=== PATIENT | male | born 1945 | race Caucasian/White ===

== ENCOUNTER 2018-03-15 06:45 | Emergency (ER) | payer OTHER ==
[2018-03-15] VITALS (8 sets, daily range): BP systolic 129–163; BP diastolic 76–89; PULSE 58–73; TEMP 36.3–36.6; O2SAT 95–99; Ht 170.2 cm; Wt 79.0 kg
[~2018-03-15] VITALS: Ht 170.2 cm; Wt 79.0 kg
[~2018-03-15 06:45] MED LIST: ASPI-320 PO; CLOP1TAB5 PO; LISI-729 PO; LPR25 PO; LPT40 PO; SPRIN/30 INH
[2018-03-15] MEDS ORDERED: ASPIRIN 81 MG CHEW PO STA (06:58)
[2018-03-15 07:14] LABS: BASO % 0.2 %; BASO ABS # 0.02 K/uL (0-0.2); EOS % 3.2 %; EOS ABS # 0.26 K/uL (0-0.5); HEMATOCRIT 41.8 % (42-52); HEMOGLOBIN 14.3 g/dL (14.0-18.0); IG# 0.03 K/uL (0.00-0.02); LYMPH ABS # 2.97 K/uL (1.2-3.4); MEAN CELL VOLUME 92.7 fL (80-100); MEAN CORPUSCULAR HEMOGLOBIN 31.7 pg (25-34); MEAN CORPUSCULAR HGB CONC 34.2 g/dl (32-36); MEAN PLATELET VOLUME 12.2 fL (7.4-10.4); MONO % 7.1 %; MONO ABS # 0.57 K/uL (0.11-0.59); NEUT % 52.1 %; NEUT ABS # 4.17 K/uL (1.4-6.5); PLATELET COUNT 246 K/uL (130-400); RED CELL DISTRIBUTION WIDTH CV 13.1 % (11.5-14.5); RED CELL DISTRIBUTION WIDTH SD 44.1 fL (36.4-46.3); WHITE BLOOD COUNT 8.02 K/uL (4.8-10.8)
[2018-03-15 07:37] LABS: ALBUMIN 4.4 gm/dl (3.4-5.0); ALKALINE PHOSPHATASE 112 U/L (45-117); ALT/SGPT 31 U/L (12-78); AST/SGOT 25 U/L (15-37); BLOOD UREA NITROGEN 22 mg/dl (7-18); CALCIUM 9.1 mg/dl (8.5-10.1); CARBON DIOXIDE 24 mmol/L (21-32); CREATININE 1.33 mg/dl (0.60-1.40); GLUCOSE 134 mg/dl (70-99); LIPASE 219 U/L (73-393); POTASSIUM 4.1 mmol/L (3.5-5.1); SODIUM 136 mmol/L (136-145); TOTAL PROTEIN 8.4 gm/dl (6.4-8.2)
[2018-03-15 07:42] LABS: INR 0.9 (0.9-1.1); PTT PATIENT 27.5 SECONDS (21.0-31.0)
--- NOTE | 2018-03-15 07:45 | DIAGNOSTIC IMAGING REPORT ---
CHEST 2 VIEWS ROUTINE CLINICAL HISTORY: 72 years-old Male presenting with cp. TECHNIQUE: PA and lateral views of the chest were obtained. COMPARISON: 07/29/2016. FINDINGS: Atherosclerosis of the aortic arch. Cardiac silhouette normal in size. Lungs and pleural spaces clear. Deformity of the left third rib is unchanged, possibly congenital or posttraumatic. Upper abdomen normal. IMPRESSION: 1. No acute cardiopulmonary disease. Electronically signed by: Jonny Michelle M.D. 03/15/2018 7:44 AM Dictated Date/Time: 03/15/2018 7:41 AM
--- NOTE | 2018-03-15 08:14 | EMERGENCY ROOM VISIT NOTE ---
History Report prepared by Jesús: Carmelo Islas Under the Supervision of: Dr. Joseph Bates M.D. First contact with patient: 06:51 Chief Complaint: CHEST PAIN Stated Complaint: TIGHTNESS IN CHEST,WEAKNESS,HARD TIME FINDING PULS History of Present Illness The patient is a 72 year old male who presents to the Emergency Room with complaints of intermittent central chest pain beginning five hours ago. He describes his pain as a feeling of "tightness". The patient's pain began during the night while watching TV and trying to fall asleep. He also reports generalized weakness. He is on Plavix and has a history of cardiac stent placement. The patient denies nausea, vomiting, diarrhea, abdominal pain, cough , SOB, or LOC. He notes that he drove to [place] a week ago, but otherwise denies prolonged travel. He denies any pain radiation. The patient smokes occasionally, and drinks alcohol regularly (every other day, though he claims this is not drinking "regularly"). He denies recent surgeries or trauma. He denies use of supplemental hormones. He is not on any medications for erectile dysfunction. Source of History: patient Onset: Five hours ago Position: chest (central) Quality: other ("tightness") Timing: intermittent Associated Symptoms: + weakness (Generalized), No LOC, No cough, No SOB, No nausea, No vomiting, No abdominal pain, No diarrhea Review of Systems See HPI for pertinent positives and negatives. A total of ten systems were reviewed and were otherwise negative. Past Medical & Surgical Medical Problems: (1) Heart disease (2) Hypertension (3) NSTEMI (non-ST elevated myocardial infarction) Family History Diabetes mellitus FH: heart disease FHx: cancer Hypertension Social History Smoking Status: Current Every Day Smoker Alcohol Use: heavy Drug Use: none Marital Status: Housing Status: lives with family Occupation Status: employed Current/Historical Medications Scheduled Aspirin (Aspirin EC Low Dose), 81 MG PO QAM Atorvastatin (Lipitor), 80 MG PO QAM Budesonide/Formoterol Fumarate (Symbicort 160/4.5 Inhaler ), 2 PUFFS INH BID Cephalexin Monohydrate (Keflex), 1 CAP PO Q6 Clopidogrel Bisulfate (Plavix), 75 MG PO DAILY Furosemide (Lasix), 1 TAB PO DAILY Ipratropium-Albuterol (Combivent Respimat), 1 PUFFS INH QID Levothyroxine Sodium (Synthroid), 0.5 TAB PO DAILY Metoprolol Tartrate (Lopressor), 25 MG PO Q12 Tiotropium Drummond (Spiriva Handihaler), 1 CAP INH DAILY Allergies Coded Allergies: No Known Allergies (Unverified , 03/15/18) Physical Exam Vital Signs Date Time Temp Pulse Resp B/P (MAP) Pulse Ox O2 Delivery O2 Flow Rate FiO2 03/15/18 08:58 59 18 137/96 97 Room Air 03/15/18 08:15 99 Room Air 03/15/18 08:05 57 18 153/99 99 Room Air 03/15/18 07:10 98 Room Air 03/15/18 07:10 98 Room Air 03/15/18 07:04 57 03/15/18 06:51 36.4 03/15/18 06:48 60 16 193/87 98 Room Air Physical Exam Physical Exam GENERAL: He is oriented to person, place, and time. He appears well-developed and well-nourished. He does not appear distressed. HENT: Exam performed. Head: Normocephalic and atraumatic. Right Ear: External ear normal. No mastoid tenderness. Left Ear: External ear normal. No mastoid tenderness. Mouth/Throat: The oropharynx is clear and moist. No trismus in the jaw. No dental abscesses or uvula swelling. No oropharyngeal exudate or tonsillar abscesses. EYES: Conjunctivae and EOM are normal. Pupils are equal, round, and reactive to light. Right eye exhibits no discharge. Left eye exhibits no discharge. No scleral icterus. NECK: Normal range of motion. Neck supple. No JVD present. No spinous process tenderness present. No carotid bruit present. No rigidity. No tracheal deviation and normal range of motion present. No Brudzinski's sign and no Kernig 's sign noted. CV: Normal rate, regular rhythm, normal heart sounds and intact distal pulses. There is no peripheral edema. Palpable radial pulses bue. PULM/CHEST: Effort normal and breath sounds normal. No respiratory distress. No stridor. He has no wheezes. He has no rales. Chest Wall: He exhibits no tenderness. ABD: The abdomen is soft. Bowel sounds are normal. He has no distension. No mass is present. There is no tenderness. There is no rebound, no guarding, no Bennett's sign and no tenderness at McBurney's point. Rovsig negative. MUSC/SKEL: Normal range of motion. There is no peripheral edema, tenderness or deformity. LYMPH: No cervical adenopathy. NEURO: He is alert and oriented to person, place, and time. He has normal strength. No cranial nerve deficit or sensory deficit. Coordination and gait normal. GCS eye subscore is 4. GCS verbal subscore is 5. GCS motor subscore is 6. Cerebellar tests wnl. SKIN: Skin is warm and dry. He is not diaphoretic. PSYCH: He has a normal mood and affect. Behavior is normal. Judgment and thought content normal. Medical Decision & Procedures ER Provider Diagnostic Interpretation: Radiology results as stated below per my review and radiologist interpretation: CHEST 2 VIEWS ROUTINE FINDINGS: Atherosclerosis of the aortic arch. Cardiac silhouette normal in size. Lungs and pleural spaces clear. Deformity of the left third rib is unchanged, possibly congenital or posttraumatic. Upper abdomen normal. IMPRESSION: 1. No acute cardiopulmonary disease. Electronically signed by: Jonny Michelle M.D. 03/15/2018 7:44 AM Laboratory Results 03/15/18 07:00 Red Blood Count 4.51, Mean Corpuscular Volume 92.7, Mean Corpuscular Hemoglobin 31.7, Mean Corpuscular Hemoglobin Concent 34.2, Mean Platelet Volume 12.2, Neutrophils (%) (Auto) 52.1, Lymphocytes (%) (Auto) 37.0, Monocytes (%) (Auto) 7.1, Eosinophils (%) (Auto) 3.2, Basophils (%) (Auto) 0.2, Neutrophils # (Auto) 4.17, Lymphocytes # (Auto) 2.97, Monocytes # (Auto) 0.57, Eosinophils # (Auto) 0.26, Basophils # (Auto) 0.02 03/15/18 07:00 Test 03/15/18 07:00 White Blood Count 8.02 K/uL (4.8-10.8) Red Blood Count 4.51 M/uL (4.7-6.1) Hemoglobin 14.3 g/dL (14.0-18.0) Hematocrit 41.8 % (42-52) Mean Corpuscular Volume 92.7 fL (80-100) Mean Corpuscular Hemoglobin 31.7 pg (25-34) Mean Corpuscular Hemoglobin Concent 34.2 g/dl (32-36) Platelet Count 246 K/uL (130-400) Mean Platelet Volume 12.2 fL (7.4-10.4) Neutrophils (%) (Auto) 52.1 % Lymphocytes (%) (Auto) 37.0 % Monocytes (%) (Auto) 7.1 % Eosinophils (%) (Auto) 3.2 % Basophils (%) (Auto) 0.2 % Neutrophils # (Auto) 4.17 K/uL (1.4-6.5) Lymphocytes # (Auto) 2.97 K/uL (1.2-3.4) Monocytes # (Auto) 0.57 K/uL (0.11-0.59) Eosinophils # (Auto) 0.26 K/uL (0-0.5) Basophils # (Auto) 0.02 K/uL (0-0.2) RDW Standard Deviation 44.1 fL (36.4-46.3) RDW Coefficient of Variation 13.1 % (11.5-14.5) Immature Granulocyte % (Auto) 0.4 % Immature Granulocyte # (Auto) 0.03 K/uL (0.00-0.02) Prothrombin Time 9.6 SECONDS (9.0-12.0) Prothromb Time International Ratio 0.9 (0.9-1.1) Activated Partial Thromboplast Time 27.5 SECONDS (21.0-31.0) Partial Thromboplastin Ratio 1.1 D-Dimer 370 ug/L FEU (0-500) Anion Gap 9.0 mmol/L (3-11) Est Creatinine Clear Calc Drug Dose 52.5 ml/min Estimated GFR () 62.3 Estimated GFR (Non- 53.8 BUN/Creatinine Ratio 16.6 (10-20) Estimated Average Glucose 137 mg/dl Hemoglobin A1c 6.4 % (4.5-5.6) Calcium Level 9.1 mg/dl (8.5-10.1) Total Bilirubin 0.5 mg/dl (0.2-1) Direct Bilirubin 0.1 mg/dl (0-0.2) Aspartate Amino Transf (AST/SGOT) 25 U/L (15-37) Alanine Aminotransferase (ALT/SGPT) 31 U/L (12-78) Alkaline Phosphatase 112 U/L (45-117) Troponin I < 0.015 ng/ml (0-0.045) Pro-B-Type Natriuretic Peptide 116 pg/ml (0-900) Total Protein 8.4 gm/dl (6.4-8.2) Albumin 4.4 gm/dl (3.4-5.0) Lipase 219 U/L (73-393) Laboratory results reviewed by me Medications Administered Medications (Trade) Dose Ordered Sig/Danyelle Route Start Time Stop Time Status Last Admin Dose Admin Aspirin (Aspirin Chew) 324 mg NOW STAT PO 03/15/18 06:58 03/15/18 07:00 DC 03/15/18 07:04 324 MG Nitroglycerin (Nitrostat Tab) 0.4 mg Q5M PRN SL 03/15/18 08:30 03/15/18 11:08 DC 03/15/18 08:33 0.4 MG Sodium Chloride 1,000 ml @ 125 mls/hr Q8H STAT IV 03/15/18 08:21 03/15/18 16:20 03/15/18 08:21 125 MLS/HR ECG Per My Interpretation Indication: chest pain Rate (beats per minute): 61 Rhythm: sinus rhythm Findings: other (DC, QRS and QTC intervals within normal limits. No ST elevations or depressions. ) ED Course 0652: The patient was evaluated in room A10. A complete history and physical exam was performed. 0658: Ordered Aspirin Chew 324 mg PO. 0700: EMR reviewed. Patient had STEMI in 2015 with cath done and stent placement in left circumflex. Patient also has a history of non-compliance, alcohol abuse, and it is documented that he is unreliable for follow-up. 0802: Vital signs stable. Labs and imaging within normal limits. Given the patients history of cardiac stent, non-compliance, and no true cardiology follow -up since stent placement, the patient will be admitted to the hospitalist service for rule out ACS. I spoke with Dr. Early of the [facility] who agrees with this plan. Medical Decision 0700: EMR reviewed. Patient had STEMI in 2015 with cath done and stent placement in left circumflex. Patient also has a history of non-compliance, alcohol abuse, and it is documented that he is unreliable for follow-up. 0802: Vital signs stable. Labs and imaging within normal limits. Given the patients history of cardiac stent, non-compliance, and no true cardiology follow -up since stent placement, the patient will be admitted to the hospitalist service for rule out ACS. I spoke with Dr. Early of the [facility] who agrees with this plan. Medication Reconcilliation Current Medication List: was personally reviewed by me Blood Pressure Screening Patient's blood pressure: Elevated blood pressure Blood pressure disposition: Referred to PCP Consults Time Called: [phone] Consulting Physician: Dr. Early - [facility] Returned Call: [phone] Discussed the patient's case. The patient will be evaluated for further treatment and disposition. Impression Primary Impression: Chest pain, unspecified Scribe Attestation The scribe's documentation has been prepared under my direction and personally reviewed by me in its entirety. I confirm that the note above accurately reflects all work, treatment, procedures, and medical decision making performed by me. The chart was completed utilizing [employer] Speech voice recognition software. Grammatical errors, random word insertions, pronoun errors, and incomplete sentences are an occasional consequence of this system due to software limitations, ambient noise, and hardware issues. Any formal questions or concerns about the content, text, or information contained within the body of this dictation should be directly addressed to the physician for clarification. Departure Information Dispostion Being Evaluated By Hospitalist Referrals Antonia Mcginnis M.D. (PCP) Patient Instructions My [facility] Problem Qualifiers Primary Impression: Chest pain, unspecified Chest pain type: unspecified Qualified Codes: R07.9 - Chest pain, unspecified
[2018-03-15] MEDS ORDERED: SODIUM CHLORIDE 0.9% 1000ML 1,000 ML IV STA (08:21)
[2018-03-15] MEDS ORDERED: NITROGLYCERIN 0.4 MG SL PER TAB CHARGE SL PRN ×2 (08:30→09:00)
[2018-03-15] MEDS ORDERED: POLYETHYLENE (MIRALAX) 17 GM PACK PO PRN (09:00)
[2018-03-15] MEDS ORDERED: ONDANSETRON INJ 2 MG/ML 2 ML VIAL IV PRN (09:00)
[2018-03-15] MEDS: ASPIRIN 81 MG ECTAB PO SCH (09:00)
--- NOTE | 2018-03-15 09:47 | History and Physical ---
History & Physical Date & Time of Service: Mar 15, 2018 at 09:16 Chief Complaint: Tightness In Chest,Weakness,Hard Time Finding Puls Primary Care Physician: No Doctor, Assigned History of Present Illness Source: patient Attending: Dr. Early This is a 72-year-old male that presents with chest pain which originated last night at about 2:30 AM. The patient states that he had a major heart attack in 1998. He also states that he had second heart attack in 2016 requiring a bare metal stent to the mid left circumflex which was placed by Dr. Perry. The patient remains on aspirin and Plavix daily as well as Lipitor daily. He also takes Lopressor 25 mg p.o. twice daily. The patient has not been diagnosed with GERD but symptoms seem to be reflux related. Pain at 2:30 AM was more like a burning sensation that was in the middle lower chest and upper abdomen. Patient does complain of some bloating which is new for him. He reports having a hot sausage sandwich somewhere between 7 PM and 9 PM as well as a midnight snack. The patient sleeps in a recliner and is able to recline fully and attempts to sleep on his right side. Pain is worse when he is in a right lateral recumbent position. He denies any hematemesis or hemoptysis. He denies any fever or chills or recent illness. However, he states that last night he did "take a chill or 2". He did travel to [place] several weeks ago, spent the night, and drove home the next day. He does not remember any asymmetrical edema of lower extremities but states that he does get lower extremity edema. The patient follows with the [facility] in [place]. He denies any other recent illness. He has no other chief complaints. It should be noted that the patient smokes cigarettes when playing guitar and drinking. He states that he drinks about every other day and that he smokes cigarettes every other day. He remains active cutting the grass and has no exertional shortness of breath or chest pain. Past Medical/Surgical History Medical Problems: CAD Hypertension NSTEMI (non-ST elevated myocardial infarction) with bare metal stent placement in 2016 to the mid left circumflex Prediabetes Shortness of breath with no diagnosis of COPD or asthma (uses Spiriva daily) Tobacco abuse Ethanol use Abnormal echocardiogram in 2016 Past surgical history: Left inguinal hernia repair Cardiac catheterization with bare-metal stent placement to the mid left circumflex [address] Perry Left rotator cuff surgery 2 years ago Family History Diabetes mellitus FH: heart disease FHx: cancer Hypertension Social History Smoking Status: Current Every Day Smoker (Per the sister although patient states is every other day) Smokeless Tobacco Use: No Alcohol Use: Patient admits to every other day use of ethanol with several beers Drug Use: none Marital Status: Housing status: lives with family (Lives with who is disabled) Occupational Status: retired (Retired from [employer] last year) Immunizations History of Influenza Vaccine: Unknown History of Tetanus Vaccine?: Unknown History of Pneumococcal: Unknown History of Hepatitis B Vaccine: Unknown Allergies Coded Allergies: No Known Allergies (Unverified , 03/15/18) Home Medications Scheduled Aspirin (Aspirin EC Low Dose), 81 MG PO QAM Atorvastatin (Lipitor), 80 MG PO QAM Budesonide/Formoterol Fumarate (Symbicort 160/4.5 Inhaler ), 2 PUFFS INH BID Cephalexin Monohydrate (Keflex), 1 CAP PO Q6 Clopidogrel Bisulfate (Plavix), 75 MG PO DAILY Furosemide (Lasix), 1 TAB PO DAILY Ipratropium-Albuterol (Combivent Respimat), 1 PUFFS INH QID Levothyroxine Sodium (Synthroid), 0.5 TAB PO DAILY Metoprolol Tartrate (Lopressor), 25 MG PO Q12 Tiotropium [place] (Spiriva Handihaler), 1 CAP INH DAILY Review of Systems Constitutional: + chills, No fever, No sweats, No weight loss, No fatigue ENT: No unusual epistaxis, No trouble swallowing Respiratory: + sputum (Occasional yellow sputum), No cough, No wheezing, No shortness of breath, No dyspnea on exertion, No hemoptysis Cardiovascular: + chest pain, + edema (Occasional but not today), No orthopnea , No claudication, No palpitations Abdomen: + problem reported (Feels bloated and often times has "heartburn"), No pain, No nausea, No vomiting, No diarrhea, No constipation, No GI bleeding Musculoskeletal: + calf pain (Occasional cramping in bilateral gastrocnemius muscles), No joint pain, No muscle pain, No swelling Genitourinary - Male: No hematuria, No dysuria, No urinary hesitancy, No urinary retention, No urinary incontinence, No penile discharge Neurologic: No memory loss, No paralysis, No weakness, No numbness/tingling, No vertigo Endocrine: No fatigue, No excessive thirst, No excessive urination Integumentary: No rash, No itch Allergic / Immunologic: No environmental allergies, No seasonal allergies, No pet sensitivities Physical Exam Vital Signs Date Time Temp Pulse Resp B/P (MAP) Pulse Ox O2 Delivery O2 Flow Rate FiO2 03/15/18 08:58 59 18 137/96 97 Room Air 03/15/18 08:15 99 Room Air 03/15/18 08:05 57 18 153/99 99 Room Air 03/15/18 07:10 98 Room Air 03/15/18 07:10 98 Room Air 03/15/18 07:04 57 03/15/18 06:51 36.4 03/15/18 06:48 60 16 193/87 98 Room Air GENERAL : No acute distress. Pleasant. Can speak in full sentences without shortness of breath EYES: No icterus, gaze conjugate. PERRLA NOSE: No evidence of epistaxis. MOUTH: No lesions or candidiasis. Mucosa moist. No facial droop. Tongue is midline NECK: Supple LUNGS: Breath sounds equal bilaterally. Rales in the left base. No bronchospasm HEART: Regular, rate controlled with a rate in the 60s ABDOMEN: Soft, NT, BS Present. Minimal mid epigastric pain with deep palpation. Abdomen is distended. No guarding or rebound tenderness EXTREMITIES: No LE edema, pedal pulses intact. Evidence of early chronic venous stasis in bilateral lower extremities NEURO: A&OX3. Cranial nerves II through XII with no focal deficit Diagnostics Laboratory Results Results Past 24 Hours Test 03/15/18 07:00 Range/Units White Blood Count 8.02 4.8-10.8 K/uL Red Blood Count 4.51 4.7-6.1 M/uL Hemoglobin 14.3 14.0-18.0 g/dL Hematocrit 41.8 42-52 % Mean Corpuscular Volume 92.7 80-100 fL Mean Corpuscular Hemoglobin 31.7 25-34 pg Mean Corpuscular Hemoglobin Concent 34.2 32-36 g/dl Platelet Count 246 130-400 K/uL Mean Platelet Volume 12.2 7.4-10.4 fL Neutrophils (%) (Auto) 52.1 % Lymphocytes (%) (Auto) 37.0 % Monocytes (%) (Auto) 7.1 % Eosinophils (%) (Auto) 3.2 % Basophils (%) (Auto) 0.2 % Neutrophils # (Auto) 4.17 1.4-6.5 K/uL Lymphocytes # (Auto) 2.97 1.2-3.4 K/uL Monocytes # (Auto) 0.57 0.11-0.59 K/uL Eosinophils # (Auto) 0.26 0-0.5 K/uL Basophils # (Auto) 0.02 0-0.2 K/uL RDW Standard Deviation 44.1 36.4-46.3 fL RDW Coefficient of Variation 13.1 11.5-14.5 % Immature Granulocyte % (Auto) 0.4 % Immature Granulocyte # (Auto) 0.03 0.00-0.02 K/uL Prothrombin Time 9.6 9.0-12.0 SECONDS Prothromb Time International Ratio 0.9 0.9-1.1 Activated Partial Thromboplast Time 27.5 21.0-31.0 SECONDS Partial Thromboplastin Ratio 1.1 D-Dimer 370 0-500 ug/L FEU Sodium Level 136 136-145 mmol/L Potassium Level 4.1 3.5-5.1 mmol/L Chloride Level 103 98-107 mmol/L Carbon Dioxide Level 24 21-32 mmol/L Anion Gap 9.0 3-11 mmol/L Blood Urea Nitrogen 22 7-18 mg/dl Creatinine 1.33 0.60-1.40 mg/dl Est Creatinine Clear Calc Drug Dose 52.5 ml/min Estimated GFR () 62.3 Estimated GFR (Non- 53.8 BUN/Creatinine Ratio 16.6 10-20 Random Glucose 134 70-99 mg/dl Calcium Level 9.1 8.5-10.1 mg/dl Total Bilirubin 0.5 0.2-1 mg/dl Direct Bilirubin 0.1 0-0.2 mg/dl Aspartate Amino Transf (AST/SGOT) 25 15-37 U/L Alanine Aminotransferase (ALT/SGPT) 31 12-78 U/L Alkaline Phosphatase 112 45-117 U/L Troponin I < 0.015 0-0.045 ng/ml Pro-B-Type Natriuretic Peptide 116 0-900 pg/ml Total Protein 8.4 6.4-8.2 gm/dl Albumin 4.4 3.4-5.0 gm/dl Lipase 219 73-393 U/L Diagnostic Radiology CHEST 2 VIEWS ROUTINE CLINICAL HISTORY: 72 years-old Male presenting with cp. TECHNIQUE: PA and lateral views of the chest were obtained. COMPARISON: 07/29/2016. FINDINGS: Atherosclerosis of the aortic arch. Cardiac silhouette normal in size. Lungs and pleural spaces clear. Deformity of the left third rib is unchanged, possibly congenital or posttraumatic. Upper abdomen normal. IMPRESSION: 1. No acute cardiopulmonary disease. Electronically signed by: Jonny Michelle M.D. 03/15/2018 7:44 AM EKG Vent. rate 61 BPM OR interval 196 ms QRS duration 88 ms QT/QTc 440/442 ms P-R-T axes 67 9 55 Normal sinus rhythm Possible Left atrial enlargement Borderline ECG When compared with ECG of 30-JUL-2016 06:22, No significant change was found Impression Assessment and Plan This is a 72-year-old male that awoke at 230 this morning with some chest pain in the precordial region extending into the mid epigastric abdominal cavity. The patient states that he ate a hot sausage sandwich last night between 7 and 9 PM and then had a midnight snack. Cardiac enzymes were negative this morning with a troponin of less than 0.015 and no EKG changes. Patient did have previous PCI with bare-metal stent to mid left circumflex [place] [address] Perry and remains on Plavix aspirin Lipitor and Lopressor since that time. Cardiology has been consulted to evaluate patient. I spoke personally with Dr. Williamson. Patient had recent travel to [place] so we will check lower extremity duplex to rule out DVT. We will also check repeat echocardiogram as patient had wall motion abnormalities after his stent in 2016. Patient will be admitted under observation status to the medical telemetry unit for further monitoring and serial cardiac enzymes. CHEST PAIN * Negative troponin and no ST changes on EKG * Check serial troponins every 6 hours * Check repeat EKG tomorrow morning and with chest pain * Cardiology consulted -appreciate Dr. Williamson's input * Check complete echocardiogram * Continue Lopressor, Plavix, Lipitor, aspirin daily * Recent travel to [place] and back * Check lower extremity duplex to rule out DVT * Does not meet criteria to rule out for pulmonary emboli * Admit for observation to med telemetry floor PROBABLE GERD * No prior history of ulcers or PUD * Will start him on ranitidine 150 mg p.o. twice daily * Discussed need for not eating within 4 hours of sleep * No hematemesis, hematochezia, melena, bright red blood per rectum * Hemoglobin and hematocrit within normal limits * Follow supportively SHORTNESS OF BREATH * Recent overnight travel to [place] and back * Check lower extremity duplex to rule out DVT * Does not follow with a wine fermenter currently but is on Spiriva daily * Discussed need for abstinence of tobacco abuse * Smoking cessation consult placed * Continue Spiriva at this time -[facility] * Oxygenation adequate on room air ETHANOL ABUSE * Every day to every other day drinker with Sheeba beer * Denies history of dependence or withdrawal * Discussed need to limit intake DVT PROPHYLAXIS * Heparin subcu every 12 hours * No teds or SCDs at this time pending lower extremity duplex to rule out DVT Please refer to Dr. Early's addendum for further recommendations Advanced Directives Existing Living Will: No Existing Power of Split Leather Mosser: No Resuscitation Status Level I: Full code VTE Prophylaxis Will order VTE Prophylaxis: Yes Reason no Mechanical VTE Order: Contraindicated (Until DVT is ruled out) Reviewed: Pt Seen/Exam by Me History Physician Event Coordinator Marketing And Sales Supervision Note: I interviewed and examined the patient. Discussed with JHON Roque and agree with findings and plan as documented in the note. Any exceptions or clarifications are listed here: Pt with substernal CP that came on during sleep after eating a midnight snack containing hot sausage. Some associated abd bloating and dyspepsia, no SOB, nonradiating. Lasted for at least 5-6 hours, somewhat relieved initially with NTG, then went away after admission here. ECG without ischemic changes, trop negative initially. CXR no acute disease Vitals reviewed NAD, AAOx3 RRR no mgr, no carotid bruits, no JVD, no TTP over chest wall Crackles at bases, diminished throughout Abd +BS soft NT ND Ext trace pitting edema bilat legs, no calf tenderness, neg Abdoulaye's sign Skin a few scabbed over abrasions on anterior tibiae bilat ECG reviewed CXR reviewed Doppler LEs neg for DVT ECHO without WMAs 72 yo male with h/o CAD s/o BMS in 2016, here with atypical CP. trend trop, if second trop negative after 6 hours of chest pain, not likely cardiac in nature -Appreciate Cardio consult-if no further testing indicated, can dc to home later today on same meds -counseled on smoking cessation Documented By: Merline Early
[2018-03-15] MEDS ORDERED: ALBUT/IPRATROP 3MG/0.5MG NEB 3 ML VIAL INH PRN (10:15)
[2018-03-15 10:29] LABS: HEMOGLOBIN A1C 6.4 % (4.5-5.6)
--- NOTE | 2018-03-15 10:41 | DIAGNOSTIC IMAGING REPORT ---
VENOUS DOPPLER LWR EXT BILA HISTORY: Pain. Edema. Chets pain, R/O LE DVT COMPARISON STUDY: None. FINDINGS: There is normal compressibility, flow, and augmentation within the bilateral lower extremity deep venous systems. IMPRESSION: No DVT within the right or left lower extremity. The above report was generated using voice recognition software. It may contain grammatical, syntax or spelling errors. Electronically signed by: Maurizio Nelson M.D. 03/15/2018 10:40 AM Dictated Date/Time: 03/15/2018 10:36 AM
[2018-03-15] MEDS ORDERED: IV FLUIDS COMPLETED PRN (11:00)
[2018-03-15] MEDS: ALBUT/IPRATROP 3MG/0.5MG NEB 3 ML VIAL INH SCH ×3 (11:28→19:26)
[2018-03-15] MEDS: ATORVASTATIN 40 MG TAB PO SCH (11:30)
[2018-03-15] MEDS: METOPROLOL TARTRATE 25 MG TAB PO SCH ×2 (11:30→20:10)
[2018-03-15] MEDS ORDERED: IPRA1AER2 INH (11:49)
[2018-03-15] MEDS ORDERED: FURO-85 PO (11:49)
[2018-03-15] MEDS ORDERED: CEPH500C PO (11:49)
[2018-03-15] MEDS ORDERED: LEVO25TA PO (11:49)
[2018-03-15] MEDS ORDERED: SYMIN160 INH (11:49)
[2018-03-15] MEDS: TIOTROPIUM BROMIDE 5 PUFF/90 MCG INH INH SCH (12:18)
[2018-03-15] MEDS: CLOPIDOGREL BISULFATE 75 MG TAB PO SCH (12:20)
[2018-03-15] MEDS: HEPARIN SOD 5000 UNIT/0.5 ML CARP SQ SCH ×2 (12:20→20:12)
[2018-03-15] MEDS: RANITIDINE HCL 150 MG TAB PO SCH ×2 (12:21→20:11)
--- NOTE | 2018-03-15 12:46 | ECHOCARDIOGRAM REPORT ---
*NOTICE TO RECEIVING REPUBLICAN AGENCY This information is strictly Confidential and protected under [place] law. [place] law prohibits you from making any further disclosure of this information unless further disclosure is expressly permitted by the written consent of the person to whom it pertains or is authorized by law. A general authorization for the release of medical or other information is not sufficient for this purpose. Hospital accepts no responsibility if the information is made available to any other person, INCLUDING THE PATIENT. Interpretation Summary * Name: TERRI BARNHART Study Date: 03/15/2018 09:29 AM BP: 137/96 mmHg * Patient Location: [facility] HR: 55 * : 1945 (M/d/yyyy) Gender: Male Height: 67 in * Age: 72 yrs Ethnicity: CA Weight: 177 lb * Ordering Physician: Luiz Roque * Referring Physician: Self, Referred * Performed By: Marilin Johnson RCS * * Reason For Study: CHEST PAIN * BSA: 1.9 m2 * -- Conclusions -- * Left ventricular systolic function is normal. * Grade I diastolic dysfunction, (abnormal relaxation pattern). * The left ventricular wall motion is normal. * Right ventricular systolic pressure is normal. Procedure Details * A complete two-dimensional transthoracic echocardiogram was performed (2D, M-mode, Doppler and color flow Doppler). * The study was technically difficult. * A contrast injection of Definity was performed to improve assessment of LV function. * Contrast was injected into an intravenous site in the right arm. * One vial of Definity ultrasound contrast was diluted in normal saline to a total volume of 10 ml. A total of '2' ml of solution was administered during imaging. * Lot # [id number] of Definity utilized for procedure. * Expiration date JANUARY 23. * The attending nurse who injected the contrast agent was CURTIS GARCIA RN. Left Ventricle * The left ventricle is normal in size. * There is normal left ventricular wall thickness. * Left ventricular systolic function is normal. * Ejection Fraction = 55-60%. * Grade I diastolic dysfunction, (abnormal relaxation pattern). * The left ventricular wall motion is normal. Right Ventricle * The right ventricle is normal in size and function. Atria * The left atrial size is normal. * Right atrial size is normal. Mitral Valve * The mitral valve is grossly normal. * Significant mitral regurgitation is absent. Tricuspid Valve * The tricuspid valve is not well visualized, but is grossly normal. * There is mild tricuspid regurgitation. * Right ventricular systolic pressure is normal. Aortic Valve * The aortic valve is normal in structure and function. * The aortic valve is trileaflet. * No hemodynamically significant valvular aortic stenosis. * There is no significant aortic regurgitation. Pulmonic Valve * The pulmonic valve is not well visualized. Great Vessels * The aortic root is normal size. Pericardium/Pleural * There is no pericardial effusion. Great Vessels * Normal inferior vena cava diameter and respiratory variation suggests normal central venous pressure. MMode 2D Measurements and Calculations IVSd 1.1 cm IVSs 1.2 cm LVIDd 3.8 cm LVIDs 2.4 cm LVPWd 0.92 cm LVPWs 1.2 cm IVS/LVPW 1.1 FS 36.2 % EDV(Teich) 63.4 ml ESV(Teich) 21.2 ml EF(Teich) 66.6 % EDV(cubed) 56.5 ml ESV(cubed) 14.7 ml EF(cubed) 74.0 % % IVS thick 16.4 % % LVPW thick 27.2 % LV mass(C)d 116.9 grams LV mass(C)dI 60.9 grams/m\S\2 LV mass(C)s 83.1 grams LV mass(C)sI 43.3 grams/m\S\2 SV(Teich) 42.2 ml SI(Teich) 22.0 ml/m\S\2 SV(cubed) 41.8 ml SI(cubed) 21.8 ml/m\S\2 Ao root diam 2.3 cm Ao root area 4.2 cm\S\2 LA dimension 3.3 cm LA/Ao 1.4 LVOT diam 2.0 cm LVOT area 3.2 cm\S\2 LVAd ap4 31.3 cm\S\2 LVLd ap4 8.5 cm EDV(MOD-sp4) 96.2 ml EDV(sp4-el) 98.3 ml LVAs ap4 22.2 cm\S\2 LVLs ap4 7.3 cm ESV(MOD-sp4) 56.6 ml ESV(sp4-el) 57.6 ml EF(MOD-sp4) 41.2 % EF(sp4-el) 41.4 % LVAd ap2 28.3 cm\S\2 LVLd ap2 8.7 cm EDV(MOD-sp2) 73.8 ml EDV(sp2-el) 77.7 ml LVAs ap2 19.6 cm\S\2 LVLs ap2 7.9 cm ESV(MOD-sp2) 40.4 ml ESV(sp2-el) 41.3 ml EF(MOD-sp2) 45.3 % EF(sp2-el) 46.9 % LVLd %diff 2.9 % EDV(MOD-bp) 85.2 ml LVLs %diff 8.2 % ESV(MOD-bp) 49.6 ml EF(MOD-bp) 41.8 % SV(MOD-sp4) 39.6 ml SI(MOD-sp4) 20.6 ml/m\S\2 SV(MOD-sp2) 33.4 ml SI(MOD-sp2) 17.4 ml/m\S\2 SV(MOD-bp) 35.6 ml SI(MOD-bp) 18.5 ml/m\S\2 SV(sp4-el) 40.7 ml SI(sp4-el) 21.2 ml/m\S\2 SV(sp2-el) 36.4 ml SI(sp2-el) 19.0 ml/m\S\2 Doppler Measurements and Calculations MV E max winnie 64.1 cm/sec MV A max winnie 79.1 cm/sec MV E/A 0.81 MV P1/2t max winnie 72.5 cm/sec MV P1/2t 83.3 msec MVA(P1/2t) 2.6 cm\S\2 MV dec slope 254.7 cm/sec\S\2 MV dec time 0.31 sec Ao V2 max 69.9 cm/sec Ao max PG 2.0 mmHg Ao max PG (full) 0.47 mmHg SUSANNAH(V,A) 2.8 cm\S\2 SUSANNAH(V,D) 2.8 cm\S\2 LV V1 max PG 1.5 mmHg LV V1 max 60.9 cm/sec MR max winnie 341.6 cm/sec MR max PG 46.7 mmHg TR max winnie 203.2 cm/sec
--- NOTE | 2018-03-15 17:24 | Cardiology Consultation ---
Cardiology Consultation Date of Consultation: Mar 15, 2018. Requesting Physician: Luiz Roque Reason for Consultation: Chest pain Pt evaluation today including: conversation w/ patient, physical exam, lab review, review of studies, review of inpatient medication list, conversation w/ attending History of Present Illness This is a 72-year-old gentleman who follows with the PA, although we have seen him for an intervention a year and a half ago. His cardiac history dates back to 1998 when he presented here with an acute anterior myocardial infarction, had thrombolytic therapy and was transferred to [facility]. At that time he had anterior hypokinesis and ejection fraction estimated at 35%, catheterization was performed and we do not have results but according to the patient's chart there is a failed attempt at stenting. I do not believe he had routine follow- up from that, but then he had recurrent chest discomfort and presented here in July 2016. He had borderline troponin elevation and had rest chest discomfort at that time therefore he underwent cardiac catheterization on July 29, 2016. He had a subtotaled left circumflex stenosis, as well as other disease including a 2030% mid RCA stenosis, and therefore had stent placement in the circumflex. His ejection fraction is estimated at 45% at catheterization. We did not see him in follow-up after this procedure, he tells me he has been following with the PA although he tends to be noncompliant. He now presents with recurrent discomfort, his history is a little bit hard to follow but he describes epigastric and substernal discomfort which he tells me is identical to his prior myocardial infarction. He also describes an exertional component to it. He also has "heartburn" which is in the epigastric area, however he tells me that this discomfort is higher and is quite different from his heartburn and he thinks it is not heartburn. Initial evaluation included an echocardiogram with no wall motion abnormalities and negative cardiac enzymes. Electrocardiogram does not show any acute ischemic event. Past Medical/Surgical History (1) Hypertension Hypertension Circumflex stent placement July 2016 Family History Diabetes mellitus FH: heart disease FHx: cancer Hypertension Social History Smoking Status: Current Every Day Smoker (Per the sister although patient states is every other day) History of Alcohol Use: Yes (beer 6pack/week, heavy ETOH intake) Review of Systems Constitutional: No fever, No weight loss, No weakness Respiratory: No cough, No wheezing, No shortness of breath, No dyspnea on exertion Cardiac: + see HPI, + chest pain, No orthopnea, No PND, No edema, No palpitations Abdomen: No pain, No nausea, No vomiting, No diarrhea, No GI bleeding Male : No urinary frequency, No nocturia more than once/night, No slowing stream, No sexual dysfunction Neurologic: No paralysis, No weakness, No numbness/tingling, No balance problems Heme: No abnormal bleeding/bruising, No clotting problems Endo: No fatigue Skin: No problem reported All Other Systems: Reviewed and Negative Allergies Coded Allergies: No Known Allergies (Unverified , 03/15/18) Medications Current Inpatient Medications Medications (Trade) Dose Ordered Sig/Danyelle Route Start Time Stop Time Status Last Admin Dose Admin Aspirin (Ecotrin Tab) 81 mg QAM PO 03/15/18 09:00 04/14/18 08:59 Atorvastatin Calcium (Lipitor Tab) 80 mg QAM PO 03/15/18 11:30 04/14/18 11:29 Clopidogrel Bisulfate (plAVix TAB) 75 mg DAILY PO 03/15/18 11:30 04/14/18 11:29 Metoprolol Tartrate (Lopressor Tab) 25 mg Q12 PO 03/15/18 11:30 04/14/18 11:29 Future Hold Tiotropium [place] (Spiriva Handihaler Inhaler) 1 puff DAILY INH 03/15/18 11:30 04/14/18 11:29 Heparin Sodium (Porcine) (Heparin Sq 5000 Unit/0.5ml) 5,000 unit Q12 SQ 03/15/18 11:30 04/14/18 11:29 Acetaminophen (Tylenol Tab) 650 mg Q4H PRN PO 03/15/18 09:00 04/14/18 08:59 Ondansetron HCl (Zofran Inj) 4 mg Q6H PRN IV 03/15/18 09:00 04/14/18 08:59 Nitroglycerin (Nitrostat Tab) 0.4 mg UD PRN SL 03/15/18 09:00 04/14/18 08:59 Polyethylene (Miralax Powder Packet) 17 gm DAILY PRN PO 03/15/18 09:00 04/14/18 08:59 Albuterol/ Ipratropium (Duoneb) 3 ml QIDR INH 03/15/18 12:00 04/14/18 11:59 03/15/18 14:36 3 ML Ranitidine HCl (zANTac TAB) 150 mg BID PO 03/15/18 11:30 04/14/18 11:29 03/15/18 12:21 150 MG Albuterol/ Ipratropium (Duoneb) 3 ml Q2H PRN INH 03/15/18 10:15 04/14/18 10:14 Miscellaneous (Iv Fluids Completed) 1 ea PRN PRN N/A 03/15/18 11:00 03/15/19 10:59 Physical Exam Vital Signs Past 12 Hours Date Time Temp Pulse Resp B/P (MAP) Pulse Ox O2 Delivery O2 Flow Rate FiO2 03/15/18 15:52 36.3 69 20 142/80 (100) 98 Room Air 03/15/18 14:36 68 18 97 Room Air 03/15/18 11:28 60 18 98 Room Air 03/15/18 11:09 58 18 163/89 (113) 98 03/15/18 09:55 55 03/15/18 08:58 59 18 137/96 97 Room Air 03/15/18 08:15 99 Room Air 03/15/18 08:05 57 18 153/99 99 Room Air 03/15/18 07:10 98 Room Air 03/15/18 07:10 98 Room Air 03/15/18 07:04 57 03/15/18 06:51 36.4 03/15/18 06:48 60 16 193/87 98 Room Air Constitutional: General Apperance: heathly-appearing Level of Distress: NAD Psychiatric: Mental Status: active & alert Head: normocephalic Eyes: EOM: EOMI ENMT: normal ENT inspection, hearing grossly normal Neck: supple, no masses Lungs: Respiratory effort: no dyspnea, good air movement Auscultation: breath sounds normal, no wheezing Cardiovascular: Heart Auscultation: RRR, no murmurs, no rubs, no gallops Peripheral Pulses: Bruits: none appreciated Abdomen: Bowel Sounds: normal Inspection & Palpation: soft, no tenderness, guarding & rebound, no masses Musculoskeletal: normal strength (5/5 throughout) Extremities: no edema Neurologic: Cranial Nerves: grossly intact Sensation: grossly intact Data Laboratory Results: Last 24 Hours Test 03/15/18 07:00 03/15/18 14:52 White Blood Count 8.02 K/uL Red Blood Count 4.51 M/uL Hemoglobin 14.3 g/dL Hematocrit 41.8 % Mean Corpuscular Volume 92.7 fL Mean Corpuscular Hemoglobin 31.7 pg Mean Corpuscular Hemoglobin Concent 34.2 g/dl Platelet Count 246 K/uL Mean Platelet Volume 12.2 fL Neutrophils (%) (Auto) 52.1 % Lymphocytes (%) (Auto) 37.0 % Monocytes (%) (Auto) 7.1 % Eosinophils (%) (Auto) 3.2 % Basophils (%) (Auto) 0.2 % Neutrophils # (Auto) 4.17 K/uL Lymphocytes # (Auto) 2.97 K/uL Monocytes # (Auto) 0.57 K/uL Eosinophils # (Auto) 0.26 K/uL Basophils # (Auto) 0.02 K/uL RDW Standard Deviation 44.1 fL RDW Coefficient of Variation 13.1 % Immature Granulocyte % (Auto) 0.4 % Immature Granulocyte # (Auto) 0.03 K/uL Prothrombin Time 9.6 SECONDS Prothromb Time International Ratio 0.9 Activated Partial Thromboplast Time 27.5 SECONDS Partial Thromboplastin Ratio 1.1 D-Dimer 370 ug/L FEU Sodium Level 136 mmol/L Potassium Level 4.1 mmol/L Chloride Level 103 mmol/L Carbon Dioxide Level 24 mmol/L Anion Gap 9.0 mmol/L Blood Urea Nitrogen 22 mg/dl Creatinine 1.33 mg/dl Est Creatinine Clear Calc Drug Dose 52.5 ml/min Estimated GFR () 62.3 Estimated GFR (Non- 53.8 BUN/Creatinine Ratio 16.6 Random Glucose 134 mg/dl Estimated Average Glucose 137 mg/dl Hemoglobin A1c 6.4 % Calcium Level 9.1 mg/dl Total Bilirubin 0.5 mg/dl Direct Bilirubin 0.1 mg/dl Aspartate Amino Transf (AST/SGOT) 25 U/L Alanine Aminotransferase (ALT/SGPT) 31 U/L Alkaline Phosphatase 112 U/L Troponin I < 0.015 ng/ml < 0.015 ng/ml Pro-B-Type Natriuretic Peptide 116 pg/ml Total Protein 8.4 gm/dl Albumin 4.4 gm/dl Lipase 219 U/L Imaging: Chest x-ray shows no active disease EKG: Sinus rhythm, normal ECG Telemetry reviewed: Sinus rhythm, no significant abnormality Echocardiogram shows normal LV function without wall motion abnormalities Assessment & Plan 1. Chest discomfort: Although his symptoms are atypical he tells me of these the same symptoms he had 2 years ago when he had significant disease and stent placement, furthermore he tells me that the symptoms resolved following stent placement. From his description now it sounds a little bit different than was written in the chart 2 years ago, but he insists that is the same symptoms although more severe last time. In addition he tells me that this is not heartburn, and that he knows what his heartburn feels like. With this time concerned that we could be missing progressive disease and would recommend keeping him overnight with stress testing in the morning as long as his enzymes continued to be negative. If the stress test is abnormal we may need to consider catheterization, therefore would keep him n.p.o. tomorrow morning. I would not alter his medications currently as he is not having symptoms. 2. Coronary disease: He has known coronary artery disease, it is certainly possible it has progressed. 3. Hypertension: He was quite severely hypertensive on admission, that has improved somewhat. I am not sure how compliant he is, and I am not sure her medication list is correct. I would certainly use a beta-carlie since he has coronary disease. Thank you for allowing me to participate in his care.
[2018-03-16] VITALS (22 sets, daily range): BP systolic 120–162; BP diastolic 73–95; PULSE 59–82; TEMP 36.1–36.9; O2SAT 95–99
[2018-03-16 02:51] LABS: BASO % 0.1 %; BASO ABS # 0.01 K/uL (0-0.2); EOS % 1.8 %; EOS ABS # 0.14 K/uL (0-0.5); HEMATOCRIT 34.5 % (42-52); HEMOGLOBIN 11.6 g/dL (14.0-18.0); IG# 0.03 K/uL (0.00-0.02); LYMPH % 32.1 %; LYMPH ABS # 2.51 K/uL (1.2-3.4); MEAN CELL VOLUME 93.5 fL (80-100); MEAN CORPUSCULAR HEMOGLOBIN 31.4 pg (25-34); MEAN CORPUSCULAR HGB CONC 33.6 g/dl (32-36); MEAN PLATELET VOLUME 11.8 fL (7.4-10.4); MONO % 5.4 %; MONO ABS # 0.42 K/uL (0.11-0.59); NEUT % 60.2 %; NEUT ABS # 4.71 K/uL (1.4-6.5); PLATELET COUNT 185 K/uL (130-400); RED CELL DISTRIBUTION WIDTH CV 13.2 % (11.5-14.5); RED CELL DISTRIBUTION WIDTH SD 45.3 fL (36.4-46.3); WHITE BLOOD COUNT 7.82 K/uL (4.8-10.8)
[2018-03-16 03:23] LABS: BLOOD UREA NITROGEN 15 mg/dl (7-18); CARBON DIOXIDE 24 mmol/L (21-32); CREATININE 1.05 mg/dl (0.60-1.40); GLUCOSE 101 mg/dl (70-99); SODIUM 141 mmol/L (136-145)
[2018-03-16 03:24] LABS: CALCIUM 8.2 mg/dl (8.5-10.1); CHOLESTEROL 102 mg/dl (0-200); LDL CHOLESTEROL CALCULATED 31 mg/dl
[2018-03-16] MEDS: ALBUT/IPRATROP 3MG/0.5MG NEB 3 ML VIAL INH SCH ×3 (06:53→15:22)
[2018-03-16] MEDS: ATORVASTATIN 40 MG TAB PO SCH (07:31)
[2018-03-16] MEDS: ACETAMINOPHEN 325 MG TAB PO PRN ×2 (07:31→15:42)
[2018-03-16] MEDS: CLOPIDOGREL BISULFATE 75 MG TAB PO SCH (07:31)
[2018-03-16] MEDS: RANITIDINE HCL 150 MG TAB PO SCH ×2 (07:32→20:25)
[2018-03-16] MEDS: ASPIRIN 81 MG ECTAB PO SCH (07:32)
[2018-03-16] MEDS: HEPARIN SOD 5000 UNIT/0.5 ML CARP SQ SCH ×2 (07:33→20:27)
[2018-03-16] MEDS: TIOTROPIUM BROMIDE 5 PUFF/90 MCG INH INH SCH (07:33)
--- NOTE | 2018-03-16 07:33 | DIAGNOSTIC IMAGING REPORT ---
CHEST ONE VIEW PORTABLE CLINICAL HISTORY: Chest pain with left-sided rales COMPARISON STUDY: 03/15/2018 FINDINGS: The cardiac and mediastinal contours remain stable. There is no failure. There is no focal pulmonary consolidation. There are no pleural effusions. There is mild ectasia/tortuosity of the thoracic aorta. There are old left-sided rib deformities.[ IMPRESSION: No active disease in the chest. Electronically signed by: Angel Cali M.D. 03/16/2018 7:32 AM Dictated Date/Time: 03/16/2018 7:31 AM
--- NOTE | 2018-03-16 09:36 | Cardiology Follow-Up ---
Subjective Date of Service: Mar 16, 2018. Pt evaluation today including: conversation w/ patient, physical exam, lab review, review of studies, review of inpatient medication list History of Present Illness This is a 72-year-old gentleman who follows with the MI, although we have seen him for an intervention a year and a half ago. His cardiac history dates back to 1998 when he presented here with an acute anterior myocardial infarction, had thrombolytic therapy and was transferred to [facility]. At that time he had anterior hypokinesis and ejection fraction estimated at 35%, catheterization was performed and we do not have results but according to the patient's chart there was a failed attempt at stenting. I do not believe he had routine follow- up from that, but then he had recurrent chest discomfort and presented here in July 2016. He had borderline troponin elevation and had rest chest discomfort at that time therefore he underwent cardiac catheterization on July 29, 2016. He had a subtotaled left circumflex stenosis, as well as other disease including a 20-30% mid RCA stenosis, and therefore had stent placement in the circumflex. His ejection fraction was estimated at 45% at catheterization. We did not see him in follow-up after this procedure, he tells me he has been following with the MI although he tends to be noncompliant and I doubt he had regular cardiology follow-up. He now presents with recurrent discomfort, his history is a little bit hard to follow but he describes epigastric and substernal discomfort which he tells me is identical to his prior myocardial infarction. He also describes an exertional component to it. He also has "heartburn" which is in the epigastric area, however he tells me that this discomfort is higher and is quite different from his heartburn and he thinks it is not heartburn. Initial evaluation included an echocardiogram with no wall motion abnormalities and negative cardiac enzymes. Electrocardiogram does not show any acute ischemic event. We therefore continued to trend cardiac enzymes and kept him overnight for stress testing this morning. This morning he has had no further chest discomfort prior to his stress test and has no complaints. Social History Smoking Status: Current Every Day Smoker (Per the sister although patient states is every other day) History of Alcohol Use: Yes (beer 6pack/week, heavy ETOH intake) Review of Systems Respiratory: No cough, No wheezing, No shortness of breath, No dyspnea on exertion Cardiac: + see HPI, + chest pain, No orthopnea, No PND, No edema, No palpitations Medications Cardiovascular: Item Value Date Time Atorvastatin 80 mg 03/15/18 1130 Calcium QAM/PO 03/16/18 0731 (Lipitor Tab) Clopidogrel 75 mg 03/15/18 1130 Bisulfate DAILY/PO 03/16/18 0731 (plAVix TAB) Aspirin 81 mg 03/15/18 0900 (Ecotrin Tab) QAM/PO 03/16/18 0732 Objective Vital Signs Past 12 Hours Date Time Temp Pulse Resp B/P (MAP) Pulse Ox O2 Delivery O2 Flow Rate FiO2 03/16/18 07:16 36.1 74 18 162/90 (114) 98 03/16/18 06:56 74 18 98 Room Air 03/16/18 04:00 36.6 77 16 159/80 (106) 97 Room Air 03/15/18 23:59 Room Air 03/15/18 22:48 36.4 63 20 129/76 (93) 95 Room Air Last Recorded Weight-Kilograms: 78.800 Physical Exam Constitutional: General Apperance: heathly-appearing Level of Distress: NAD Lungs: Respiratory effort: no dyspnea, good air movement Auscultation: breath sounds normal, no wheezing Cardiovascular: Heart Auscultation: RRR, no murmurs, no rubs, no gallops Peripheral Pulses: Bruits: none appreciated Extremities: no edema Data Laboratory Results: Last 24 Hours Test 03/15/18 14:52 03/15/18 21:02 03/16/18 02:39 03/16/18 08:59 Troponin I < 0.015 ng/ml < 0.015 ng/ml < 0.015 ng/ml White Blood Count 7.82 K/uL Red Blood Count 3.69 M/uL Hemoglobin 11.6 g/dL Hematocrit 34.5 % Mean Corpuscular Volume 93.5 fL Mean Corpuscular Hemoglobin 31.4 pg Mean Corpuscular Hemoglobin Concent 33.6 g/dl Platelet Count 185 K/uL Mean Platelet Volume 11.8 fL Neutrophils (%) (Auto) 60.2 % Lymphocytes (%) (Auto) 32.1 % Monocytes (%) (Auto) 5.4 % Eosinophils (%) (Auto) 1.8 % Basophils (%) (Auto) 0.1 % Neutrophils # (Auto) 4.71 K/uL Lymphocytes # (Auto) 2.51 K/uL Monocytes # (Auto) 0.42 K/uL Eosinophils # (Auto) 0.14 K/uL Basophils # (Auto) 0.01 K/uL RDW Standard Deviation 45.3 fL RDW Coefficient of Variation 13.2 % Immature Granulocyte % (Auto) 0.4 % Immature Granulocyte # (Auto) 0.03 K/uL Sodium Level 141 mmol/L Potassium Level 4.0 mmol/L Chloride Level 111 mmol/L Carbon Dioxide Level 24 mmol/L Anion Gap 6.0 mmol/L Blood Urea Nitrogen 15 mg/dl Creatinine 1.05 mg/dl Est Creatinine Clear Calc Drug Dose 66.5 ml/min Estimated GFR () 83.0 Estimated GFR (Non- 71.6 BUN/Creatinine Ratio 14.4 Random Glucose 101 mg/dl Calcium Level 8.2 mg/dl Triglycerides Level 158 mg/dl Cholesterol Level 102 mg/dl HDL Cholesterol 39 mg/dl LDL Cholesterol, Calculated 31 mg/dl VLDL Cholesterol, Calculated 32 mg/dl Cholesterol/HDL Ratio 2.6 EKG: Sinus rhythm, no significant abnormalities Telemetry reviewed: Sinus rhythm, no significant arrhythmia Stress echo: During his stress echo this morning he was very hypertensive during the test, he also developed a small amount of substernal chest discomfort reminiscent of what he presented with. This resolved quickly with rest. He did have up to 0.[address] depression suggesting ischemia on electrocardiogram. Echo findings are suggestive of inferior ischemia. Assessment and Plan 1. Chest discomfort: Although his symptoms are atypical he tells me of these the same symptoms he had 2 years ago when he had significant disease and stent placement, furthermore he tells me that the symptoms resolved following stent placement. From his description now it sounds a little bit different than was written in the chart 2 years ago, but he insists that is the same symptoms although more severe last time. In addition he tells me that this is not heartburn, and that he knows what his heartburn feels like. He did have similar symptoms during the stress test today, although they were mild and short -lived. With exertional symptoms on stress testing, a suggestion of ST depression on electrocardiography during stress testing and a suggestion of wall motion abnormalities during stress we need to consider cardiac catheterization. Dr. Sigala will evaluate the patient. 2. Coronary disease: He has known coronary artery disease, it is certainly possible it has progressed. 3. Hypertension: He was quite severely hypertensive on admission as well as during stress test, we did hold his beta-carlie this morning prior to the stress test. I will restart his beta-carlie. Thank you for allowing me to participate in his care.
[2018-03-16] MEDS ORDERED: METOPROLOL TARTRATE 50 MG TAB PO STA (09:37)
--- NOTE | 2018-03-16 11:36 | EXERCISE STRESS ECHO ---
*NOTICE TO RECEIVING DEMOCRAT AGENCY This information is strictly Confidential and protected under [place] law. [place] law prohibits you from making any further disclosure of this information unless further disclosure is expressly permitted by the written consent of the person to whom it pertains or is authorized by law. A general authorization for the release of medical or other information is not sufficient for this purpose. Hospital accepts no responsibility if the information is made available to any other person, INCLUDING THE PATIENT. Interpretation Summary * Name: TERRI BARNHART Study Date: 03/16/2018 08:24 AM BP: 161/87 mmHg * Patient Location: [facility]\S\N286\S\1 HR: 72 * : 1945 (M/d/yyyy) Gender: Male Height: 67 in * Age: 72 yrs Ethnicity: [place] Weight: 177 lb * Ordering Physician: Heri Williamson * Referring Physician: Self, Referred * Performed By: Marilin Johnson RCS * * Reason For Study: KNOWN CAD * BSA: 1.9 m2 * -- Conclusions -- * 1. Positive exercise stress echo for ischemia. Exercise induced inferior hypokinesis. * 2. Borderline exercise ECG with 0.[address] depressions. * 3. Normal functional capacity. Exercise 6:46 min, acheiving 8.1 METS. * 4. Hypertensive response to exercise with systolic pressure to 240s. Exercise induced chest pain. * 5. Normal resting LV function. See echo report from 03/15/2018 for details. Procedure Details * ECHOEX, CPT #40037 * A contrast injection of Definity was performed to improve assessment of LV function. * Contrast was injected into an intravenous site in the right arm. * One vial of Definity ultrasound contrast was diluted in normal saline to a total volume of 10 ml. A total of '4' ml of solution was administered during imaging. * Lot # [id number] of Definity utilized for procedure. * Expiration date JANUARY 23. * The attending nurse who injected the contrast agent was JACQUELIN ALARCON RN. Left Ventricle * The left ventricle is grossly normal size. * There is normal left ventricular wall thickness. * Left ventricular systolic function is normal. * Exercise induced inferior hypokinesis Right Ventricle * The right ventricle is grossly normal size. Pericardium * There is no pericardial effusion. Stress Parameters * Normal baseline electrocardiogram. * Arrhythmia induced during stress: occasional PVC's. * Borderline 0.5mm horizontal ST depression in inferior leads resolving less than 1 minute into recovery. Chest tightness with peak stress. * Arrhythmia noted in recovery: occasional PVC's. * The stress portion of this study was personally supervised by the undersigned interpreting physician. * Rest heart rate was '72' BPM. * Rest blood pressure was '161/87' * Maximum heart rate achieved was 131 bpm. * Maximum heart rate was 87 % of maximum age-predicted heart rate. * Maximum blood pressure was '240/87' * Total exercise time was '06:46' * Maximum exercise MET level achieved was '8.10' METS * Maximum treadmill speed was '3.30' miles per hour. * Maximum treadmill elevation was '14.00'% grade. Left Ventricular Findings with Stress * The study was diagnostic quality.
[2018-03-16] MEDS ORDERED: MIDAZOLAM HCL 1 MG/ML 2ML VIAL ONE (12:34)
[2018-03-16] MEDS ORDERED: FENTANYL CITRATE INJ 50 MCG/1 ML 2 ML VIAL ONE (12:35)
[2018-03-16] MEDS ORDERED: HEPARIN SOD (PORCINE) 1000 UNIT/ML 10 ML VIAL ONE (12:35)
[2018-03-16] MEDS ORDERED: NiCARDipine HCL INJ 2.5 MG/ML 10 ML AMP ONE (12:35)
[2018-03-16] MEDS ORDERED: NITROGLYCERIN/D5W 100MCG/ML 20ML SYR ONE (12:38)
[2018-03-16] MEDS ORDERED: CLOPIDOGREL BISULFATE 300 MG TAB PO ONE (13:22)
--- NOTE | 2018-03-16 13:23 | Pre Sedation Assessment ---
Pre Sedation Assessment General Date of Sedation: Mar 16, 2018. Vital Signs Past 12 Hours Date Time Temp Pulse Resp B/P (MAP) Pulse Ox O2 Delivery O2 Flow Rate FiO2 03/16/18 12:40 36.7 73 16 99 03/16/18 11:33 36.7 73 16 162/88 (112) 99 03/16/18 11:14 82 18 98 Room Air 03/16/18 08:00 Room Air 03/16/18 07:16 36.1 74 18 162/90 (114) 98 03/16/18 06:56 74 18 98 Room Air 03/16/18 04:00 36.6 77 16 159/80 (106) 97 Room Air Pre-Sedation Airway Assessment Smoking Status: Current Every Day Smoker (Per the sister although patient states is every other day) Hx of Sleep Apnea: No Short Thick Neck: No Oral Cavity: WNL Mallampati Classification: Class II ASA Classification: Class III NPO Status Date of Last Intake of Fluids: Mar 15, 2018 Time of Last Intake of Fluids: 2199 Date of Last Intake of Solids: Mar 15, 2018 Time of Last Intake of Solids: 2199 Procedure Planning Contraindications for Sedation: None Current Medications Reviewed: Yes Notes The planned sedation has been discussed with the patient. Informed Consent was obtained. I have identified the patient, determined the appropriateness of sedation and have assessed the patient immediately prior to the procedure. All medicine(s) and interventions are by my order.
--- NOTE | 2018-03-16 13:24 | Post Sedation Assessment ---
Post Sedation Assessment General Date of Sedation Mar 16, 2018. Vital Signs: Vital Signs Past 12 Hours Date Time Temp Pulse Resp B/P (MAP) Pulse Ox O2 Delivery O2 Flow Rate FiO2 03/16/18 12:40 36.7 73 16 99 03/16/18 11:33 36.7 73 16 162/88 (112) 99 03/16/18 11:14 82 18 98 Room Air 03/16/18 08:00 Room Air 03/16/18 07:16 36.1 74 18 162/90 (114) 98 03/16/18 06:56 74 18 98 Room Air 03/16/18 04:00 36.6 77 16 159/80 (106) 97 Room Air Post Procedure Recovery Score Activity: (2) Moves 4 extremities * Respiration: (2) Deep breath/cough Circulation: (2) +/-20% PreAnes Value Consciousness: (2) Fully Awake Oxygen Saturation: (2) > 92% On Room Air Discharge Sedation Level of Care: Phase I Post Sedation Plan On clinical assessment, the patient appears to have tolerated the sedation without complications. Patient is recovering as anticipated. Patient will continue to be monitored by nursing and may be discharged when sedation discharge criteria are met per below protocol. Upon Completions of procedure and additional 15 minutes continue every 5 minute vital signs and the P.A.R. score; then discharge to a Phase I or Fast Track to Phase II per the following guidelines: * Discharge Patient to appropriate Phase II area if PAR is 8 or greater or return to pre- procedure baseline. The post - procedure orders will be as directed. * If PAR score is less than 8 or not return to pre-procedure baseline then patient will follow Phase I monitoring till PAR is reached for Phase II. The Phase I may be done in procedure room or may call to secure a Phase I area. * If naloxone or flumazenil are used for reversal, hold in Phase I for an additional 60 -120 minutes before discharge to Phase II. Please call the Sedation Physician to re-evaluate and complete post-note for discharge to Phase II area. Do NOT discharge from procedure sedation or Phase 1 until post- sedation evaluation note is complete by procedure /sedation MD Sedation Discharge Instructions to be given to the patient at discharge to home.
--- NOTE | 2018-03-16 13:30 | Cardiac Catheterization ---
Procedure Note Procedure Date Mar 16, 2018. Pre-Procedure Diagnosis Positive Stress Test AUC Score 7 Post-Procedure Diagnosis Severe CAD, Successful PCI, Normal Intracardiac Pressures Procedure(s) Performed Coronary Angiography, Left Heart Cath, Drug Eluting Stent Pipe Fitter Supervisor Maintenance lupe Floor Director(s) contino Estimated Blood Loss Medication(s) Clopidogrel, Fentanyl, Heparin, Nicardipine, Nitroglycerin, Versed, Lidocaine 1% Summary of Findings Indication: Chest pain; positive stress test for inferior ischemia Access: 6Fr right radial artery Catheters: [place]; JR4 guide Findings: LM - Angiographically normal LAD - Moderate caliber vessel with distal luminal irregularities Circumflex - Widely patent mid segment stent; no significant distal disease. RCA - Dominant, 70-80% mid RCA stenosis; distal luminal irregularities LVEDP - 13 -- PCI -- Antithrombotic therapy: Heparin, Clopidogrel Procedure: RCA cannulated with JR4 guide BMW wire passed across lesion into distal vessel Mid RCA lesion predilated with 2.5 compliant balloon Dilated lesion stented with 4.0 x 23 Xience ABDULLAHI Stent post-dilated with 4.5 noncompliant balloon IC vasodilators administered for spasm Post procedure ALFRED 3 flow, stent well expanded with minimal residual stenosis and no apparent cardiac complications. Arterial Closure: TR Band Summary: 1. Severe single vessel coronary artery disease - 70-80% mid RCA - Widely patent mid circumflex stent 2. Normal intracardiac filling pressure 3. Successful PCI of mid RCA with single drug-eluting stent (4.0 x 23 Xience; post-dilated with 4.5 NC). 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 Continue dual-antiplatelet therapy for at least 6 months Continue statin, and ASCVD risk factor modification Consult cardiac Rehab Hemodynamics Rest Ao: 112/60/85 Final Ao: 126/61/90 LV: 111/13 Recommendations PCI without planned CABG Specimens None Radiation Exposure (mGy) 1023 Contrast (mls) 70 opti Fluids (cc crystalloids) 60 NS Drains none Anesthesia moderate Procedural Complication(s) None Disposition PCU ACC Data Cardiac Status Clinical evaluation leading to the procedure CAD Presntation: Positive Stress Test Anginal Classification: CCS III Heart Failure: No, NYHA Class: CCS I Cardiogenic Shock w/in 24Hrs: No Cardiac Arrest w/in 24Hrs: No Imaging studies past 6 months: Yes Stress studies past 6 months: Yes Stress Echocardiogram: Yes - Positive, Risk/Extent of Ischemia (High) Closure Device Percutaneous Entry Location: Radial Closure Device: Radial Band Recommendations: PCI without planned CABG PCI Indication: + Stress Test Lesion Segment Name: mid RCA Culprit Artery: Yes Stenosis Prior to Rx (%): 70% Chronic Total Occlusion: No IVUS: No FFR: No Pre-Procedure ALFRED Flow: 3 Previously Treated Lesion: No Lesion Complexity: Non-High/Non-C Lesion Length (mm): 15 Thrombus Present: No Bifurcation Lesion: No Guidewire Across Lesion: Yes Guidewire: Stenosis Post-Procedure (%): 0 Post-Procedure ALFRED Flow: 3 Device(s) Deployed: Yes Intraprocedure Events Significant Dissection: No Perforation: No
[2018-03-16] MEDS ORDERED: SODIUM CHLORIDE 0.9% 1000ML 1,000 ML IV SCH (14:00)
--- NOTE | 2018-03-16 19:26 | Hospitalist Progress Note ---
Hospitalist Progress Note Date of Service Mar 16, 2018. Subjective Pt evaluation today including: conversation w/ patient, conversation w/ planning consultant (Cardiology) Patient had no further chest pain overnight. He had his stress echo this morning which was positive for inducible ischemia. He also had chest pain with exertion. He had a cardiac catheterization and had a stent placed in the mid RCA. He currently is doing well. Has no complaints at all. All Other Systems: Reviewed and Negative Objective Vital Signs Date Time Temp Pulse Resp B/P (MAP) Pulse Ox O2 Delivery O2 Flow Rate FiO2 03/16/18 18:01 69 16 157/86 (110) 97 03/16/18 17:01 68 16 160/95 (113) 97 03/16/18 16:31 64 13 128/90 (98) 97 03/16/18 16:31 64 13 128/90 (98) 97 03/16/18 16:16 64 13 152/73 (99) 97 03/16/18 16:01 64 17 134/85 (93) 98 03/16/18 15:46 63 14 145/80 (98) 98 03/16/18 15:31 63 15 135/91 (110) 99 03/16/18 15:23 63 16 98 Room Air 03/16/18 15:16 65 13 154/89 (110) 99 03/16/18 15:01 64 16 141/84 (91) 97 03/16/18 14:46 68 15 129/75 (83) 97 03/16/18 14:31 67 13 127/87 (93) 98 03/16/18 14:16 61 14 136/77 (82) 97 03/16/18 14:01 63 13 129/74 (89) 98 03/16/18 14:00 Room Air 03/16/18 13:56 59 15 120/84 (91) 95 03/16/18 13:37 68 14 143/72 (95) 96 Room Air 03/16/18 13:32 65 14 149/65 (93) 96 Room Air 03/16/18 13:27 63 14 135/72 (93) 96 Room Air 03/16/18 13:22 64 14 129/73 (91) 96 Nasal Cannula 3 03/16/18 12:40 36.7 73 16 99 03/16/18 11:33 36.7 73 16 162/88 (112) 99 03/16/18 11:14 82 18 98 Room Air 03/16/18 08:00 Room Air 03/16/18 07:16 36.1 74 18 162/90 (114) 98 03/16/18 06:56 74 18 98 Room Air 03/16/18 04:00 36.6 77 16 159/80 (106) 97 Room Air 03/15/18 23:59 Room Air 03/15/18 22:48 36.4 63 20 129/76 (93) 95 Room Air 03/15/18 19:37 Room Air 03/15/18 19:36 36.6 66 20 147/88 (107) 95 Room Air 03/15/18 19:28 73 18 96 Room Air Physical Exam General Appearance: WD/WN, no apparent distress Eyes: normal inspection, sclerae normal ENT: hearing grossly normal Neck: trachea midline Respiratory/Chest: lungs clear, normal breath sounds, no respiratory distress, no accessory muscle use Cardiovascular: regular rate, rhythm, no murmur, + pertinent finding (Trace pitting edema legs bilaterally) Abdomen: normal bowel sounds, non tender, soft Extremities: no calf tenderness Neurologic/Psychiatric: alert, normal mood/affect Skin: normal color, warm/dry, no rash Laboratory Results Last 24 Hours Test 03/15/18 21:02 03/16/18 02:39 03/16/18 09:38 03/16/18 13:06 Troponin I < 0.015 ng/ml < 0.015 ng/ml < 0.015 ng/ml White Blood Count 7.82 K/uL Red Blood Count 3.69 M/uL Hemoglobin 11.6 g/dL Hematocrit 34.5 % Mean Corpuscular Volume 93.5 fL Mean Corpuscular Hemoglobin 31.4 pg Mean Corpuscular Hemoglobin Concent 33.6 g/dl Platelet Count 185 K/uL Mean Platelet Volume 11.8 fL Neutrophils (%) (Auto) 60.2 % Lymphocytes (%) (Auto) 32.1 % Monocytes (%) (Auto) 5.4 % Eosinophils (%) (Auto) 1.8 % Basophils (%) (Auto) 0.1 % Neutrophils # (Auto) 4.71 K/uL Lymphocytes # (Auto) 2.51 K/uL Monocytes # (Auto) 0.42 K/uL Eosinophils # (Auto) 0.14 K/uL Basophils # (Auto) 0.01 K/uL RDW Standard Deviation 45.3 fL RDW Coefficient of Variation 13.2 % Immature Granulocyte % (Auto) 0.4 % Immature Granulocyte # (Auto) 0.03 K/uL Sodium Level 141 mmol/L Potassium Level 4.0 mmol/L Chloride Level 111 mmol/L Carbon Dioxide Level 24 mmol/L Anion Gap 6.0 mmol/L Blood Urea Nitrogen 15 mg/dl Creatinine 1.05 mg/dl Est Creatinine Clear Calc Drug Dose 66.5 ml/min Estimated GFR () 83.0 Estimated GFR (Non- 71.6 BUN/Creatinine Ratio 14.4 Random Glucose 101 mg/dl Calcium Level 8.2 mg/dl Triglycerides Level 158 mg/dl Cholesterol Level 102 mg/dl HDL Cholesterol 39 mg/dl LDL Cholesterol, Calculated 31 mg/dl VLDL Cholesterol, Calculated 32 mg/dl Cholesterol/HDL Ratio 2.6 Kaolin Activated Coagulation Time 252 SECONDS Assessment and Plan This patient is a 72-year-old male with history of CAD with bare metal stent to the mid left circumflex in 2016, dyslipidemia, HTN, suspected COPD, hypothyroidism, alcohol abuse, and current smoker, who was admitted with chest pain that woke him from sleep after eating hot sausage as a midnight snack. Substernal CP/severe CAD-the chest pain came on during sleep after eating a midnight snack containing hot sausage. He had some associated abd bloating and dyspepsia, no SOB, nonradiating. Lasted for at least 5-6 hours, somewhat relieved initially with NTG, then went away after admission here. ECG without ischemic changes, trop negative 4. CXR no acute disease, and resting echo without wall motion abnormalities, with normal EF. Certainly seems like a gastrointestinal related chest pain, however, his Stress echo was positive for inducible ischemia in the inferior region. Cardiac catheterization on 03/16 revealed 70-80% stenosis in the mid RCA-this was stented with ABDULLAHI -Loaded with Plavix and continue Plavix 75 mg once daily, aspirin 81 mg daily -Continue high intensity statin atorvastatin 80 mg daily -Continue metoprolol tartrate 25 mg p.o. twice daily -Follow BMP in the morning to check renal function -Appreciate cardiology management -counseled on smoking cessation -Needs referral to cardiac rehab as an outpatient -Can likely discharged home tomorrow if no events on telemetry -Continues on ranitidine 150 mill grams p.o. twice daily in case of GERD Lower extremity edema-present for many years -Doppler lower extremities negative for DVT -Restart Lasix 20 mg daily in the morning Chronic diastolic CHF-no evidence of acute exacerbation -Restart Lasix in the morning -Blood pressure control as below Chronic dyspnea on exertion-likely due to suspected COPD. He is a current smoker -Recommend PFTs as an outpatient if not done recently -Counseled extensively on smoking cessation -On Combivent at home 4 times daily, he reports he is not on Spiriva- discontinued Spiriva -Continue Symbicort 2 puffs twice daily HTN-blood pressures been elevated here slightly -Restart Lasix in the morning -Continue metoprolol Alcohol abuse-drinks 6 beers every other day. No history of withdrawal -Counseled on cessation of alcohol versus reduction in number of drinks Hypothyroidism-no recent TSH in our system. -Continue home dose of levothyroxine 12.5 mcg once daily -Check TSH Prediabetes-hemoglobin A1c here is 6.4% -No medication for this, continue diet control Current smoker-counseled on smoking cessation as above Prophylaxis-SQ heparin Disposition-likely to home tomorrow if no events on telemetry and doing well
[2018-03-16] MEDS: BUDESONIDE/FORMOTEROL FUMARATE 160/4.5 60 PUFFS/INHALER INH SCH (20:23)
[2018-03-16] MEDS: METOPROLOL TARTRATE 25 MG TAB PO SCH (20:25)
[2018-03-16] MEDS: IPRATROPIUM BROMIDE/ALBUTEROL respimat INH INH SCH (21:03)
[2018-03-17 00:01] VITALS: BP 140/86; PULSE 75; TEMP 36.8; O2SAT 98
[2018-03-17 04:00] VITALS: BP 145/76; PULSE 73; TEMP 36.5; O2SAT 95
[2018-03-17] MEDS ORDERED: LEVOTHYROXINE 25 MCG TAB PO SCH (06:00)
[2018-03-17 06:25] LABS: BASO % 0.2 %; BASO ABS # 0.02 K/uL (0-0.2); EOS % 3.1 %; EOS ABS # 0.26 K/uL (0-0.5); HEMATOCRIT 36.5 % (42-52); IG# 0.03 K/uL (0.00-0.02); LYMPH % 32.4 %; LYMPH ABS # 2.69 K/uL (1.2-3.4); MEAN CELL VOLUME 94.6 fL (80-100); MEAN CORPUSCULAR HEMOGLOBIN 31.1 pg (25-34); MEAN CORPUSCULAR HGB CONC 32.9 g/dl (32-36); MEAN PLATELET VOLUME 12.3 fL (7.4-10.4); MONO % 5.9 %; MONO ABS # 0.49 K/uL (0.11-0.59); NEUT ABS # 4.81 K/uL (1.4-6.5); PLATELET COUNT 192 K/uL (130-400); RED CELL DISTRIBUTION WIDTH CV 13.4 % (11.5-14.5)
[2018-03-17 06:48] LABS: CREATININE 1.1 mg/dl (0.60-1.40); POTASSIUM 4.7 mmol/L (3.5-5.1)
[2018-03-17] MEDS: RANITIDINE HCL 150 MG TAB PO SCH (08:03)
[2018-03-17] MEDS: ASPIRIN 81 MG ECTAB PO SCH (08:03)
[2018-03-17] MEDS: METOPROLOL TARTRATE 25 MG TAB PO SCH (08:03)
[2018-03-17] MEDS: ATORVASTATIN 40 MG TAB PO SCH (08:03)
[2018-03-17] MEDS: CLOPIDOGREL BISULFATE 75 MG TAB PO SCH (08:03)
[2018-03-17] MEDS: BUDESONIDE/FORMOTEROL FUMARATE 160/4.5 60 PUFFS/INHALER INH SCH (08:04)
[2018-03-17] MEDS: IPRATROPIUM BROMIDE/ALBUTEROL respimat INH INH SCH (08:04)
[2018-03-17 08:07] VITALS: BP 170/83; PULSE 75; TEMP 36.6; O2SAT 95
[2018-03-17] MEDS: HEPARIN SOD 5000 UNIT/0.5 ML CARP SQ SCH (08:07)
[2018-03-17] MEDS ORDERED: FUROSEMIDE 20 MG TAB PO SCH (09:00)
--- NOTE | 2018-03-17 09:04 | Cardiology Follow-Up ---
Subjective Date of Service: Mar 17, 2018. Pt evaluation today including: conversation w/ patient, physical exam, lab review, review of studies, review of inpatient medication list History of Present Illness This is a 72-year-old gentleman who follows with [facility], although we have seen him for an intervention a year and a half ago. His cardiac history dates back to 1998 when he presented here with an acute anterior myocardial infarction, had thrombolytic therapy and was transferred to [facility]. At that time he had anterior hypokinesis and ejection fraction estimated at 35%, catheterization was performed and we do not have results but according to the patient's chart there was a failed attempt at stenting. I do not believe he had routine follow- up from that, but then he had recurrent chest discomfort and presented here in July 2016. He had borderline troponin elevation and had rest chest discomfort at that time therefore he underwent cardiac catheterization on July 29, 2016. He had a subtotaled left circumflex stenosis, as well as other disease including a 20-30% mid RCA stenosis, and therefore had stent placement in the circumflex. His ejection fraction was estimated at 45% at catheterization. We did not see him in follow-up after this procedure, he tells me he has been following with the [facility] although he tends to be noncompliant and I doubt he had regular cardiology follow-up. He now presents with recurrent discomfort, his history is a little bit hard to follow but he describes epigastric and substernal discomfort which he tells me is identical to his prior myocardial infarction. He also describes an exertional component to it. He also has "heartburn" which is in the epigastric area, however he tells me that this discomfort is higher and is quite different from his heartburn and he thinks it is not heartburn. Initial evaluation included an echocardiogram with no wall motion abnormalities and negative cardiac enzymes. Electrocardiogram does not show any acute ischemic event. We therefore continued to trend cardiac enzymes and kept him overnight for stress testing which was performed on the morning of March 16, 2018. That was suggestive of ischemia and it reproduced his symptoms, therefore he underwent catheterization that day and was noted to have a significant right coronary artery stenosis. Intervention was performed.. This morning he has had no further chest discomfort, he does not have any discomfort at his catheterization site in the right wrist. He is anxious to go home. Social History Smoking Status: Current Every Day Smoker (Per the sister although patient states is every other day) History of Alcohol Use: Yes (beer 6pack/week, heavy ETOH intake) Review of Systems Respiratory: No cough, No wheezing, No shortness of breath, No dyspnea on exertion Cardiac: + see HPI, + chest pain, No orthopnea, No PND, No edema, No palpitations Medications Cardiovascular: Item Value Date Time Furosemide 20 mg 03/17/18 0900 (Lasix Tab) DAILY/PO 03/17/18 08 Atorvastatin 80 mg 03/15/18 1130 Calcium QAM/PO 03/17/18 08 (Lipitor Tab) Clopidogrel 75 mg 03/15/18 1130 Bisulfate DAILY/PO 03/17/18 08 (plAVix TAB) Metoprolol 25 mg 03/15/18 1130 Tartrate Q12/PO 03/17/18 08 (Lopressor Tab) Aspirin 81 mg 03/15/18 09 (Ecotrin Tab) QAM/PO 03/17/18 08 Objective Vital Signs Past 12 Hours Date Time Temp Pulse Resp B/P (MAP) Pulse Ox O2 Delivery O2 Flow Rate FiO2 03/17/18 08:07 36.6 75 20 170/83 (112) 95 03/17/18 04:00 36.5 73 18 145/76 (99) 95 Room Air 03/17/18 00:01 36.8 75 16 140/86 (104) 98 Room Air Last Recorded Weight-Kilograms: 79.000 Physical Exam Constitutional: General Apperance: heathly-appearing Level of Distress: NAD Lungs: Respiratory effort: no dyspnea, good air movement Auscultation: breath sounds normal, no wheezing Cardiovascular: Heart Auscultation: RRR, no murmurs, no rubs, no gallops Peripheral Pulses: Bruits: none appreciated Extremities: no edema His right wrist catheterization site has a Band-Aid on it, there is no swelling or tenderness. Data Laboratory Results: Last 24 Hours Test 03/16/18 09:38 03/16/18 13:06 03/17/18 06:01 Troponin I < 0.015 ng/ml Kaolin Activated Coagulation Time 252 SECONDS White Blood Count 8.30 K/uL Red Blood Count 3.86 M/uL Hemoglobin 12.0 g/dL Hematocrit 36.5 % Mean Corpuscular Volume 94.6 fL Mean Corpuscular Hemoglobin 31.1 pg Mean Corpuscular Hemoglobin Concent 32.9 g/dl Platelet Count 192 K/uL Mean Platelet Volume 12.3 fL Neutrophils (%) (Auto) 58.0 % Lymphocytes (%) (Auto) 32.4 % Monocytes (%) (Auto) 5.9 % Eosinophils (%) (Auto) 3.1 % Basophils (%) (Auto) 0.2 % Neutrophils # (Auto) 4.81 K/uL Lymphocytes # (Auto) 2.69 K/uL Monocytes # (Auto) 0.49 K/uL Eosinophils # (Auto) 0.26 K/uL Basophils # (Auto) 0.02 K/uL RDW Standard Deviation 46.0 fL RDW Coefficient of Variation 13.4 % Immature Granulocyte % (Auto) 0.4 % Immature Granulocyte # (Auto) 0.03 K/uL Sodium Level 140 mmol/L Potassium Level 4.7 mmol/L Chloride Level 110 mmol/L Carbon Dioxide Level 25 mmol/L Anion Gap 5.0 mmol/L Blood Urea Nitrogen 18 mg/dl Creatinine 1.10 mg/dl Est Creatinine Clear Calc Drug Dose 58.4 ml/min Estimated GFR () 78.4 Estimated GFR (Non- 67.7 BUN/Creatinine Ratio 16.5 Random Glucose 117 mg/dl Calcium Level 9.0 mg/dl Magnesium Level 2.2 mg/dl Thyroid Stimulating Hormone (TSH) 3.290 uIu/ml Telemetry reviewed: Sinus rhythm, no significant abnormality Assessment and Plan 1. Chest discomfort: Although his symptoms are atypical by his description he did feel that they were similar to what he had in the past, and since he did have significant disease and reproduction of his symptoms on stress testing that probably is the case. Is not had further symptoms but has not been active. 2. Coronary disease: He has known coronary artery disease with progression in the right coronary artery, now post stent placement. We do need to continue risk factor modification, I would go up on his beta-blockade on discharge. He should continue atorvastatin clopidogrel as well as aspirin. 3. Hypertension: He continues to have significant hypertension and on stress testing his blood pressure was markedly elevated. I would go up on his beta- carlie on discharge, he may need other antihypertensives but I would start with that. I discussed follow-up with him, [facility] He is concerned about the cost and tells me he cannot afford a co-pay in our office. I have therefore not schedule him for a follow-up visit. Thank you for allowing me to participate in his care.
[2018-03-17 11:50] VITALS: BP 161/88; PULSE 65; TEMP 36.3; O2SAT 97
[2018-03-17] MEDS ORDERED: ATOR80TA PO (12:23)
[2018-03-17] MEDS ORDERED: ZNT150 PO (12:23)
[2018-03-17] MEDS ORDERED: CLOP1TAB5 PO (12:23)
[2018-03-17] MEDS ORDERED: METO-551 PO (12:23)
[2018-03-17] MEDS ORDERED: NTRSLP4 SL (12:23)
--- NOTE | 2018-03-17 12:32 | Discharge Instructions ---
Discharge Instructions Date of Service Mar 17, 2018. Admission Reason for Admission: Chest Pain Discharge Discharge Diagnosis / Problem: Chest Pain likely due to blocked coronary artery ; placement of stent Discharge Goals Goal(s): Learn about illness, Diagnostic testing, Therapeutic intervention Activity Recommendations Activity Limitations: as noted below ACTIVITY RECOMMENDATIONS following your heart catheterization: Excess manipulation of the RIGHT wrist should be avoided for the next 24-48 hours. * No lifting over 2 pounds (approximately a 1/2 gallon of milk) with the right arm/hand for 24 hours. * No strenuous activities such as doing heavy yard work, going to the gym, etc until cleared by the microfilm equipment inspector. Typically the microfilm equipment inspector would clear you for more normal activities within 2-3 weeks. Until then light activities (walks , etc) are fine. * Keep the site of the procedure covered with a bandage for 24 hours. *You may shower at this time. HOWEVER, Do not take a tub bath or submerge the puncture site in water for the next 3 days. *Do not operate any motorized equipment for 3 days. SPECIAL CARE INSTRUCTIONS: The site may be slightly bruised and sore following your procedure. Should any of the following occur, contact the Dr. who performed your procedure. 1. Redness/inflammation, swelling, chills, or fever, or colored drainage at procedure site within 3-7 days after your procedure. 2. Coldness, discoloration, ongoing numbness, severe pain, or swelling. Expect mild tingling of hand and tenderness at the puncture site for up to three days. If this persists beyond three days, or other symptoms develop, notify the Dr. who performed your procedure. BLEEDING: If the procedure site on your wrist begins to bleed, do not panic 1. Place 1 or 2 fingers firmly just slightly above the insertion site to stop the bleeding. You may be able to feel your pulse as you hold pressure. 2. Lift your finger after 5 minutes to see if the bleeding has stopped. 3. Once the bleeding has stopped, gently wipe the wrist area clean with a bandage. * If the bleeding from your wrist does not stop after 10 minutes, or if there is a large amount of bleeding or spurting, call 911 (do not drive yourself to the hospital). SKIN IRRITATION: * You may experience some redness and/or swelling in the area where radiation was administered. If any skin irritation occurs, please contact your family physician. . Instructions / Follow-Up Instructions / Follow-Up From Dr. Mathews - 1. Instructions following your heart catheterization - Home Care: * Take your medications exactly as directed. Don't skip doses. * Remember that recovery after a heart attack takes time. Plan to rest for at lease 4-8 weeks while you recover. Then return to normal activity when your doctor says it's okay. * Ask your doctor about joining a heart rehabilitation program. * Tell your doctor if you are feeling depressed. Feelings of sadness are common after a heart attack, but it is important that you speak to someone if you are feeling overwhelmed by these feelings. * If you are having chest pain, call 911 for an ambulance. Do NOT drive yourself to the hospital. * Ask your family members to learn CPR. * Learn to take your own blood pressure and pulse. Keep a record of your results. Ask your doctor when you should seek emergency medical attention. He or she will tell you which blood pressure reading is dangerous. Lifestyle Changes: * Maintain a healthy weight. Get help to lose any extra pounds. * Cut back on salt. * Limit canned, dried, packaged, and fast foods. * Don't add salt to your food. * Season foods with herbs instead of salt when you cook. * Break the smoking habit. Enroll in a stop-smoking program to improve your chances of success. * Limit fatty foods. * Ask your doctor about having your lipid levels checked regularly. * Build up your activity according to your doctor's recommendation. * Ask your doctor when it's okay to resume sexual activity. * Tell your doctor about any erectile dysfunction (ED) medication you are taking. Some ED medications are not safe if you take certain heart medications. * Try to manage stress. 2. STOP SMOKING IF AT ALL POSSIBLE. Talk to your family doctor about ways to quit smoking. 3. Please note the following medication changes - * INCREASE your metoprolol 50mg twice a day every day; this medication is for your heart and your high blood pressure * CONTINUE your lipitor (atorvastatin) 80mg once a day for high cholesterol * START ranitidine 150mg twice a day every day for heartburn 4. CONTINUE your plavix (clopidogrel) - this medications prevents the stent from getting clogged. 5. CARRY YOUR NITROGLYCERIN bottle with you at all times. If you experiences chest pain, shortness of breath, jaw pain, left arm pain - any symptom that concerns you for your heart - take the nitroglycerin every 5 minutes for a maximum of 3 in 15 minutes. Seek medical attention if you have to take nitroglycerin. 6. Heartburn - ranitidine 150mg twice a day. 7. Follow-up - * see the [facility] within 1 week as scheduled * see the [facility] cardiology office in [place] within 2 weeks; ask for referral from your family doctor * alternatively you can see [facility] within 2 weeks 8. Return to [facility] if - * you have to take nitroglycerin * you have recurrent chest pain * you are short of breath * you see black or dark stools or have bright red blood in your stool * any other concerns Current Hospital Diet Patient's current hospital diet: AHA Diet (Heart Healthy) Discharge Diet Recommended Diet: AHA Diet (Heart Healthy), Diabetes Type 2 Diet Procedures Procedures Performed: 1. echocardiogram - normal heart function. 2. stress test - POSITIVE for a blocked artery. 3. cardiac catheterization - discovery of a blocked artery at the bottom of the heart leading to a stent being placed. Pending Studies Studies pending at discharge: no Laboratory Results Hemoglobin A1c Test 03/15/18 07:00 Range/Units Estimated Average Glucose 137 mg/dl Hemoglobin A1c 6.4 H 4.5-5.6 % Lipid Panel Test 03/16/18 02:39 Range/Units Triglycerides Level 158 H 0-150 mg/dl Cholesterol Level 102 0-200 mg/dl HDL Cholesterol 39 mg/dl Cholesterol/HDL Ratio 2.6 LDL Cholesterol, Calculated 31 mg/dl Medical Emergencies . Who to Call and When: Medical Emergencies: If at any time you feel your situation is an emergency, please call 911 immediately. Call 911 immediately or go to your nearest Emergency Room if you experience any of the following: Warning Signs and Symptoms of a Heart Attack * Chest pain that is not relieved by medication * Shortness of breath . Non-Emergent Contact Non-Emergency issues call your: Primary Care Provider, [employer] Call Non-Emergent contact if: temperature is above 100.5, your pain is not controlled, your pain is worsening, your pain is unusual for you, your pain is concerning you, wound has increased drainage, wound has increased redness, wound has increased pain, you have any medication questions . . "Provider Documentation" section prepared by Jaxon Mathews. . AMI Core Measures Reason no ASA as I/P: Treatment provided - N/A Reason no ASA at D/C: Treatment provided - N/A Reason no statin as I/P: Treatment provided - N/A Reason no statin at D/C: Treatment provided - N/A
[2018-03-17 12:39] VITALS: BP 161/88; PULSE 65; TEMP 36.3; O2SAT 97
--- NOTE | 2018-03-22 11:31 | Discharge Summary ---
Discharge Summary Date of Service Mar 17, 2018. Discharge Summary Admission Date: Mar 15, 2018 at 09:14 Discharge Date: Mar 17, 2018 Discharge Disposition: Home Principal Diagnosis: chest pain 2nd to CAD, s/p RCA drug-eluting stent Problems/Secondary Diagnoses: CAD Hypertension NSTEMI (non-ST elevated myocardial infarction) with bare metal stent placement in 2016 to the mid left circumflex Prediabetes Shortness of breath with no diagnosis of COPD or asthma (uses Spiriva daily) Tobacco abuse Ethanol use GERD hyperlipidemia hypothyroidism Immunizations: Have You Had Influenza Vaccine: Unknown History of Tetanus Vaccine?: Unknown History of Pneumococcal: Unknown History of Hepatitis B Vaccine: Unknown Procedures: 1. 2D echocardiogram: -- Conclusions -- * Left ventricular systolic function is normal. * Grade I diastolic dysfunction, (abnormal relaxation pattern). * The left ventricular wall motion is normal. * Right ventricular systolic pressure is normal. 2. stress echocardiogram: -- Conclusions -- * 1. Positive exercise stress echo for ischemia. Exercise induced inferior hypokinesis. * 2. Borderline exercise ECG with 0.[address] depressions. * 3. Normal functional capacity. Exercise 6:46 min, acheiving 8.1 METS. * 4. Hypertensive response to exercise with systolic pressure to 240s. Exercise induced chest pain. * 5. Normal resting LV function. See echo report from 03/15/2018 for details. 3. left heart catheterization: Reji Sigala MD Findings: LM - Angiographically normal LAD - Moderate caliber vessel with distal luminal irregularities Circumflex - Widely patent mid segment stent; no significant distal disease. RCA - Dominant, 70-80% mid RCA stenosis; distal luminal irregularities LVEDP - 13 -- PCI -- Antithrombotic therapy: Heparin, Clopidogrel Procedure: RCA cannulated with JR4 guide BMW wire passed across lesion into distal vessel Mid RCA lesion predilated with 2.5 compliant balloon Dilated lesion stented with 4.0 x 23 Xience ABDULLAHI Stent post-dilated with 4.5 noncompliant balloon IC vasodilators administered for spasm Post procedure ALFRED 3 flow, stent well expanded with minimal residual stenosis and no apparent cardiac complications. Consultations: cardiology - Heri Williamson MD / Reji Sigala MD Medication Reconciliation New Medications: Nitroglycerin (Nitrostat) 0.4 Mg/1 Tab Subl 0.4 MG SL [id number] PRN for Chest Pain, #1 BTL 0 Refills max 3 tabs in 15 minutes Ranitidine HCl (Ranitidine HCl) 150 Mg Tab 150 MG PO BID, #60 TAB 11 Refills for heartburn Changed Medications: Atorvastatin (Lipitor) 80 Mg Tab 1 TAB PO DAILY for 30 Days, #30 TAB 11 Refills (Changed from: Atorvastatin ( Lipitor) 40 Mg Tab 80 Mg PO QAM 30 Days #60 TAB) Metoprolol Tartrate (Lopressor) 50 Mg Tab 1 TAB PO BID for 30 Days, #60 TAB 11 Refills (Changed from: Metoprolol Tartrate (Lopressor) 25 Mg Tab 25 Mg PO Q12 30 Days #60 TAB) Continued Medications: Aspirin (Aspirin EC Low Dose) 81 Mg Ectab 81 MG PO QAM for 30 Days Budesonide/Formoterol Fumarate (Symbicort 160/4.5 Inhaler ) Aero 2 PUFFS INH BID, INHALER Clopidogrel Bisulfate (Plavix) 75 Mg Tab 75 MG PO DAILY, #30 TAB 11 Refills (This prescription has been renewed) Furosemide (Lasix) 20 Mg Tab 1 TAB PO DAILY for 90 Days, #90 TAB 1 Refill Ipratropium-Albuterol (Combivent Respimat) 1 Aer Aer 1 PUFFS INH QID, INH Levothyroxine Sodium (Synthroid) 25 Mcg Tab 0.5 TAB PO DAILY for 30 Days, #15 TAB 5 Refills Tiotropium [place] (Spiriva Handihaler) 30 Puff/540 Mcg Aerp 1 CAP INH DAILY for 30 Days, #30 CAP 3 Refills Discontinued Medications: Cephalexin Monohydrate (Keflex) 500 Mg Cap 1 CAP PO Q6 for 10 Days, #1 CAP Referrals At Discharge Follow up Referrals: Personnel Arbitrator Referral - Within 2 Weeks with Reji Sigala MD Discharge Exam Physical Exam: General Appearance: no apparent distress ENT: pharynx normal Neck: no JVD Respiratory/Chest: lungs clear, no respiratory distress, no accessory muscle use Cardiovascular: regular rate, rhythm, no edema, no gallop, no JVD, no murmur , normal peripheral pulses Abdomen / GI: normal bowel sounds, non tender, soft, no organomegaly Extremities: no pedal edema Neurologic/Psychiatric: normal mood/affect, oriented x 3 Skin: + pertinent finding (no hematoma, right wrist) Hospital Course HISTORY OF PRESENT ILLNESS: This is a 72-year-old male that presents with chest pain which originated last night at about 2:30 AM. The patient states that he had a major heart attack in 1998. He also states that he had second heart attack in 2016 requiring a bare metal stent to the mid left circumflex which was placed by Dr. Perry. The patient remains on aspirin and Plavix daily as well as Lipitor daily. He also takes Lopressor 25 mg p.o. twice daily. The patient has not been diagnosed with GERD but symptoms seem to be reflux related. Pain at 2:30 AM was more like a burning sensation that was in the middle lower chest and upper abdomen. Patient does complain of some bloating which is new for him. He reports having a hot sausage sandwich somewhere between 7 PM and 9 PM as well as a midnight snack. The patient sleeps in a recliner and is able to recline fully and attempts to sleep on his right side. Pain is worse when he is in a right lateral recumbent position. He denies any hematemesis or hemoptysis. He denies any fever or chills or recent illness. However, he states that last night he did "take a chill or 2". He did travel to [place] several weeks ago, spent the night, and drove home the next day. He does not remember any asymmetrical edema of lower extremities but states that he does get lower extremity edema. The patient follows with the [facility] in [place]. He denies any other recent illness. He has no other chief complaints. It should be noted that the patient smokes cigarettes when playing guitar and drinking. He states that he drinks about every other day and that he smokes cigarettes every other day. He remains active cutting the grass and has no exertional shortness of breath or chest pain. HOSPITAL COURSE: The patient ruled out for acute DC with negative serial troponins. Telemetry remained stable during his stay. He never had recurrent chest pain. He ultimately underwent an exercise stress echocardiogram which was POSITIVE showing inferior wall ischemia. Dr. Reji Sigala subsequently took Mr. Robles to the cardiac catheterization lab where a 70-80% mid-RCA lesion was discovered. This lesion was consistent with his stress echocardiogram findings. Dr. Sigala successfully placed a drug-eluting stent across this lesion with resolution of the stenosis. Post-catheterization the patient remained hemodynamically stable. It is believed that the patient also suffers from GERD in addition to his CAD. For that reason he was placed on zantac twice daily. At discharge the patient will continue on aspirin, plavix, nitro SL PRN, beta carlie, and high-intensity statin. He should take the plavix for at least 1 year. Cardiac rehab was recommended. Smoking cessation was advised. The patient had not seen a box lining machine feeder prior to this hospital stay in several years. He was counseled that he needs to see cardiology at least on an annual basis if not more. He was given the option of either following up with Dr. Sigala at [facility] or seeing cardiology through the [facility]. Regardless he needs to see cardiology within 2-3 weeks of discharge. Post-DC discharge instructions were given to the patient and his before his departure home. Total Time Spent: Greater than 30 minutes This includes examination of the patient, discharge planning, medication reconciliation, and communication with other providers. Discharge Instructions Please refer to the electronic Patient Visit Report (Discharge Instructions) for additional information. Follow-Up 1. JHON Wilcox, at the [facility] in [place] on Thursday, March at 1:45pm. 2. either Reji Sigala MD - [facility] - [place] - [facility] - within 2-3 weeks. Additional Copies To Laura Alas PA-C; Reji Sigala MD
== END 2018-03-17 13:05 | disposition home or self-care (01) ==
LOC: C.EDB 06:47 → C.MED 09:14 → ENRESERV 09:47 → C.2E 03-16 13:46
PROVIDERS: ADMIT Family Medicine; ATTEND Internal Medicine
DX: R07.9 Chest pain, unspecified (principal); I25.10 Atherosclerotic heart disease of native coronary artery without angina pectoris; I10 Essential (primary) hypertension; I25.2 Old myocardial infarction; R73.03 Prediabetes; R06.02 Shortness of breath; F17.200 Nicotine dependence, unspecified, uncomplicated; F19.90 Other psychoactive substance use, unspecified, uncomplicated; K21.9 Gastro-esophageal reflux disease without esophagitis; E78.5 Hyperlipidemia, unspecified; E03.9 Hypothyroidism, unspecified; Z79.899 Other long term (current) drug therapy; Z79.82 Long term (current) use of aspirin; Z79.02 Long term (current) use of antithrombotics/antiplatelets

== ENCOUNTER 2023-04-26 14:23 | Observation (INO) ==
[2023-04-26] MEDS ORDERED: NITROGLYCERIN 2% OINTMENT 30GM TUBE EXT STA (14:40)
--- NOTE | 2023-04-26 14:49 | Emergency Department Note ---
Impression & Plan Precordial chest pain, History of coronary artery disease, Leukocytosis, Hypokalemia ED Provider Note NAME: TERRI BARNHART AGE: 78 SEX: M : 1945 ARRIVES VIA: Ambulance INFORMANT: [Patient][nursing] ED PROVIDER(S): [Luiz Saldana MD] CHIEF COMPLAINT: Cardiac assessment HISTORY OF PRESENT ILLNESS: The patient is a 78-year-old male who at around 1245, just under 2 hours ago, suddenly felt dizzy and nauseated and began to sweat. He developed upper chest pressure that went to his neck. He felt weak and somewhat faint. He did vomit. He took his 's nitroglycerin without relief. The patient does admit that he felt short of breath when this was happening. He tried his inhaler without relief. EMS administered 324 of oral aspirin, 4 mg of IV Zofran, 500 cc of IV saline. Patient's chest pressure is markedly better and would be rated now as a 1/10. The patient admits that today, he has been coughing up more phlegm. He has not had fever. He has been active the last few days without chest pain or increased dyspnea. The patient has of a history of coronary disease. He has had an GA, he has 3 coronary stents. PMHx/PSHx: See Below SOCIAL HISTORY: See Below. PHYSICAL EXAM: GENERAL: Patient is in no acute distress. HEENT: No acute trauma, normocephalic atraumatic, mucous membranes moist, no nasal congestion. NECK: No stridor, no adenopathy, no meningismus, trachea is midline. LUNGS: Clear to auscultation bilaterally, no wheeze, no rhonchi, breath sounds equal. HEART: The patient appears to have a regular rhythm with occasional extra beats. There is no murmur, rate is regular ABDOMEN: Soft, nontender, bowel sounds positive, no peritonitis. EXTREMITIES: No cyanosis, mild bilateral pedal edema, full range of motion of all the joints without pain or difficulty, no signs for acute trauma. NEUROLOGIC: Oriented x 3, no acute motor or sensory deficits, no focal weakness. SKIN: No rash, no jaundice, no diaphoresis. DIFFERENTIAL DIAGNOSIS: GA, angina, musculoskeletal pain, viral illness, gastric upset, pneumonia, bronchitis, dysrhythmia, among others. EMERGENCY DEPARTMENT COURSE/PROCEDURES: Prior/Outside records reviewed: EMS notes. ECG per my interpretation: Indication was chest pain. The ECG shows a sinus rhythm with PVCs. The rate is 77. There is no ST elevation. The QTc is 479. Continuous Cardiac Monitoring per my interpretation: An order was placed for continuous cardiac monitoring. The monitor shows a rate of 74 with sinus rhythm and PVCs. MEDICAL DECISION MAKING: There is a mild leukocytosis, this could be consistent with the stress of his presentation or potentially infection. There was an anemia present with a hemoglobin of 11.5. This is baseline for the patient. There is a normal platelet count. No coagulopathy. Potassium is low at 3.3, no renal failure. No concerning liver enzyme elevation. BNP was not not elevated making CHF less likely. No evidence for pancreatitis. ECG showed a sinus rhythm with PVCs, no ST elevation. Cardiac enzyme testing x1 was not consistent with acute cardiac injury. Chest x-ray per my review did not show mediastinal widening, pneumonia or pneumothorax. On exam, the patient was nontoxic and appeared to be resting comfortably. Patient was given IV potassium, 1 inch of nitroglycerin was placed The patient is now pain-free and without complaints. He presents with chest pain that felt a lot like his previous GA. He does have known coronary disease. Given the presentation, given his history, I do think a cardiac work-up within the hospital is warranted. I spoke with the patient and case management, the on-call hospitalist was consulted. DISPOSITION: Patient's presentation and findings warrant a hospital stay. Past Med/Surg History Medical History Abdominal bloating Anemia pt denies BPH (benign prostatic hyperplasia) Cervicalgia CKD (chronic kidney disease), stage III COPD (chronic obstructive pulmonary disease) mild - sob with exertion Coronary artery disease 1998 following GA - [facility] - failed PCI 2015 - stent 2018 - 1 stent DM type 2 (diabetes mellitus, type 2) NIDDM GERD (gastroesophageal reflux disease) Hearing deficit Rt ear History of myocardial infarction 1998, 2015 Hyperlipidemia Hypertension Hypothyroidism Osteoarthritis Scoliosis Solitary pulmonary nodule TMJ click never locked Venous insufficiency Surgical History (Updated 12/01/22 @ 10:58 by Hansa Nye RN) History of appendectomy History of cardiac catheterization x 3 1998 following GA - [facility] - failed PCI 07/29/2016 [facility] - 1 stent 03/16/2018 [facility] - 1 stent History of colonoscopy History of left inguinal hernia repair History of shoulder surgery Left shoulder repair with hardware. History of tonsillectomy History of tooth extraction S/P coronary artery stent placement x 3 (TERESSA Barrera (1989) /[facility]) Family History Father Heart disease Diabetes Sister Diabetes Other Cancer No family history of adverse response to anesthesia No family history of bleeding disorder Stroke Social History Smoking Status: Current some day smoker Tobacco Type: Cigarettes Cigarettes Per Day: x2 a month; Second Hand Exposure: No; Do You Dip or Chew Tobacco: No; Hx Alcohol Use: Yes Alcohol type: beer Hx Substance Use: No Preferred Language: Macedonian Communication Ability: Effective Blood Tester Fowl Required: No Beliefs That Will Affect Care: None Current Living Situation: Spouse Feels Safe at Home: Yes Assistive Devices: Glasses Allergies Allergies Allergy/AdvReac Type Severity Reaction Status Date / Time No Known Drug Allergies Allergy Verified 12/08/22 12:37 Home Meds Home Medications Medication Instructions Recorded Confirmed albuterol sulfate 90 mcg/actuation 2 puffs inhalation Q6H PRN 12/29/19 04/26/23 breath activated powder inhaler shortness of breath aspirin 81 mg tablet,delayed 81 mg PO QAM 12/29/19 04/26/23 release (Adult Low Dose Aspirin) atorvastatin 80 mg tablet 80 mg PO QAM 12/29/19 04/26/23 cholecalciferol (vitamin D3) 25 2,000 units PO QAM 12/29/19 04/26/23 mcg (1,000 unit) capsule clopidogrel 75 mg tablet (Plavix) 75 mg PO QAM 12/29/19 04/26/23 fluticasone propionate 50 2 sprays intranasal DAILY PRN 12/29/19 04/26/23 mcg/actuation nasal Nasal Congestion spray,suspension ibuprofen 400 mg tablet 400 mg PO Q8H PRN pain 12/29/19 04/26/23 levothyroxine 25 mcg tablet 12.5 mcg PO QAM 12/29/19 04/26/23 potassium chloride 20 mEq 20 meq PO QAM 12/29/19 04/26/23 tablet,extended release(part/cryst) folic acid 1 mg tablet 1 mg PO QAM 05/07/21 04/26/23 famotidine 20 mg tablet 20 mg PO QAM GERD 12/01/22 04/26/23 fluticasone 500 mcg-salmeterol 50 1 inh inhalation BID 12/01/22 04/26/23 mcg/dose blistr powdr for inhalation (Wixela Inhub) metformin 1,000 mg tablet 1,000 mg PO QAM 12/01/22 04/26/23 metoprolol succinate 50 mg 50 mg PO QAM 12/01/22 04/26/23 tablet,extended release 24 hr semaglutide 0.25 mg or 0.5 mg (2 0.5 mg subcut WK 12/01/22 04/26/23 mg/3 mL) subcutaneous pen injector (Ozempic) Previous Rx's Medication Instructions Recorded furosemide 40 mg tablet See Rx Instructions PO BID #120 12/30/19 tabs ipratropium bromide 21 mcg (0.03 2 spray intranasal DAILY #30 mL 01/09/22 %) nasal spray Results & Data (ED) Vital Signs Vital Signs - 24 hr 04/26/23 14:23 04/26/23 14:35 04/26/23 14:39 Temperature 35.6 C L Temperature Source Oral Pulse Rate 81 74 Pulse Rate from SpO2 Sensor Respiratory Rate 18 Respiratory Effort / Characteristics Non-Labored Non-Labored Respiratory Depth Normal Normal Respiratory Pattern Regular Blood Pressure 104/70 Blood Pressure Mean 81 Pulse Oximetry 95 Oxygen Delivery Method Room Air Room Air Sepsis Recent Fever Within 48 Hours No Sepsis New/Unexplained Change in Mental Status N/A Sepsis Action Taken by Nursing No Action Required 04/26/23 14:40 04/26/23 14:34 04/26/23 14:40 Temperature Temperature Source Pulse Rate 75 75 Pulse Rate from SpO2 Sensor 65 67 Respiratory Rate 9 L 18 Respiratory Effort / Characteristics Respiratory Depth Respiratory Pattern Blood Pressure Blood Pressure Mean Pulse Oximetry 96 94 95 Oxygen Delivery Method Room Air Sepsis Recent Fever Within 48 Hours Sepsis New/Unexplained Change in Mental Status Sepsis Action Taken by Nursing 04/26/23 14:50 04/26/23 15:00 04/26/23 15:01 Temperature Temperature Source Pulse Rate 73 74 Pulse Rate from SpO2 Sensor 60 72 Respiratory Rate 15 21 Respiratory Effort / Characteristics Respiratory Depth Respiratory Pattern Blood Pressure 133/69 125/50 L Blood Pressure Mean 90 77 Pulse Oximetry 94 96 Oxygen Delivery Method Room Air Sepsis Recent Fever Within 48 Hours Sepsis New/Unexplained Change in Mental Status Sepsis Action Taken by Nursing 04/26/23 15:01 04/26/23 15:30 04/26/23 15:31 Temperature Temperature Source Pulse Rate 76 76 74 Pulse Rate from SpO2 Sensor 60 52 L 51 L Respiratory Rate 15 15 18 Respiratory Effort / Characteristics Respiratory Depth Respiratory Pattern Blood Pressure Blood Pressure Mean Pulse Oximetry 95 94 95 Oxygen Delivery Method Sepsis Recent Fever Within 48 Hours Sepsis New/Unexplained Change in Mental Status Sepsis Action Taken by Nursing 04/26/23 15:31 04/26/23 16:00 04/26/23 16:00 Temperature Temperature Source Pulse Rate 76 Pulse Rate from SpO2 Sensor 56 L Respiratory Rate 15 Respiratory Effort / Characteristics Respiratory Depth Respiratory Pattern Blood Pressure 113/49 L 109/52 L Blood Pressure Mean 75 73 Pulse Oximetry 94 Oxygen Delivery Method Sepsis Recent Fever Within 48 Hours Sepsis New/Unexplained Change in Mental Status Sepsis Action Taken by Nursing 04/26/23 16:30 04/26/23 16:30 Temperature Temperature Source Pulse Rate 76 Pulse Rate from SpO2 Sensor Respiratory Rate 22 Respiratory Effort / Characteristics Respiratory Depth Respiratory Pattern Blood Pressure 110/74 Blood Pressure Mean 84 Pulse Oximetry Oxygen Delivery Method Sepsis Recent Fever Within 48 Hours Sepsis New/Unexplained Change in Mental Status Sepsis Action Taken by Residential Medications Current Medication List: was personally reviewed by me Laboratory Data Attestation: I reviewed the patient's lab results. 04/26/23 14:40 04/26/23 14:40 Lab Results 04/26/23 04/26/23 04/26/23 Range/Units 14:40 14:40 14:41 WBC 12.96 H (4.8-10.8) K/ul RBC 3.76 L (4.70-6.10) M/uL Hgb 11.5 L (14.0-18.0) g/dl Hct 34.1 L (42.0-52.0) % MCV 90.7 (80.0-100.0) fL MCH 30.6 (25.0-34.0) pg MCHC 33.7 (32.0-36.0) g/dL RDW Std Deviation 44.8 (36.4-46.3) fL RDW Coeff of Valentina 13.5 (11.5-14.5) % Plt Count 222 (130-400) K/uL MPV 12.4 (9.4-12.4) fL Immature Gran % (Auto) 0.4 % Neut % (Auto) 78.7 % Lymph % (Auto) 13.4 % [place] % (Auto) 5.7 % Eos % (Auto) 1.5 % Baso % (Auto) 0.3 % Neut # (Auto) 10.20 H (1.40-6.50) K/uL Lymph # (Auto) 1.74 (1.2-3.4) K/uL [place] # (Auto) 0.74 H (0.11-0.59) K/uL Eos # (Auto) 0.19 (0-0.50) K/uL Baso # (Auto) 0.04 (0-0.2) K/uL Immature Gran # (Auto) 0.05 (0.01-0.20) K/uL PT 10.7 (9.0-12.0) Seconds INR 1.0 (0.9-1.1) APTT 25.2 (21.0-31.0) Seconds PTT Ratio 0.9 Sodium 136 (136-145) mmol/L Potassium 3.3 L (3.5-5.1) mmol/L Chloride 104 (98-107) mmol/L Carbon Dioxide 22 (21-32) mmol/L Anion Gap 10 (3-11) BUN 19 (6-23) mg/dl Creatinine 1.05 (0.6-1.4) mg/dl Est Cr Clr Drug Dosing 56.0 ml/min Est GFR ( Amer) 79.5 ml/min Est GFR (Non-Af Amer) 68.6 ml/min BUN/Creatinine Ratio 18.1 (10-20) Glucose 170 H (70-99(Fasting)) mg/dl Calcium 9.1 (8.6-10.3) mg/dl Magnesium 1.8 (1.7-2.4) mg/dl Total Bilirubin 0.8 (0.2-1.0) mg/dl AST 14 (13-39) U/L ALT 11 (7-52) U/L Alkaline Phosphatase 92 (34-104) U/L Troponin I High Sens 3.8 (0-20) pg/ml Total Protein 6.8 (6.0-8.3) gm/dl Albumin 4.1 (3.4-5.0) gm/dl Globulin 2.7 (2.5-4.0) gm/dl Albumin/Globulin Ratio 1.5 (0.9-2) Lipase 20 (11-82) U/L Administered Medications Heparin Sodium/Dextrose (Heparin Sodium/Dextrose) 25,000 units in 500 mls @ 16 mls/hr IV .Q24H [facility]; Protocol Stop: 05/26/23 17:59 Last Admin: 04/26/23 18:21 Dose: 800 units/hr, 16 mls/hr Documented By: YARY Co-signed By: ANGELICA Insulin Aspart (Insulin Aspart Per Unit Charge) 0 units SC ACHS [facility] Stop: 05/26/23 20:59 Last Admin: 04/26/23 21:05 Dose: Not Given Documented By: YARY Co-signed By: BERTA Insulin Glargine (Lantus Per Unit Charge) 6 units SQ BID [facility] Stop: 05/26/23 20:59 Last Admin: 04/26/23 21:04 Dose: 6 units Documented By: YARY Co-signed By: BERTA Potassium Chloride (Potassium Chloride Crtab 20 Meq Tabcr) 20 meq PO TID [facility] Stop: 04/27/23 14:01 Last Admin: 04/26/23 21:05 Dose: 20 meq Documented By: YARY Discontinued Medications Heparin Sodium (Porcine) (Heparin Sod (Porcine) 1000 Unit/Ml) 4,000 units IV NOW ONE Stop: 04/26/23 17:56 Last Admin: 04/26/23 18:21 Dose: 4,000 units Documented By: YARY Co-signed By: ANGELICA Potassium Chloride (K Cj / Wtr) 10 meq in 100 mls @ 100 mls/hr IV ONE ONE Stop: 04/26/23 16:37 Last Admin: 04/26/23 16:18 Dose: 100 mls/hr Documented By: YARY Magnesium Oxide (Magnesium Oxide 400 Mg Tab) 400 mg PO ONE ONE Stop: 04/26/23 16:53 Last Admin: 04/26/23 17:26 Dose: 400 mg Documented By: YARY Nitroglycerin (Nitroglycerin 2% Ointment 30gm Tube) 1 inch EXT NOW STA Stop: 04/26/23 14:41 Last Admin: 04/26/23 14:57 Dose: 1 inch Documented By: VANESA Imaging Data Radiologist's Impression: Chest X-Ray 04/26/23 14:40 XR chest 1V portable HISTORY: 78 years-old Male Chest pain, nonspecific COMPARISON: 03/16/2018 TECHNIQUE: AP view the chest FINDINGS: Cardiomediastinal and hilar silhouettes are within normal limits. No pneumothorax, pleural effusion, airspace consolidation or pulmonary edema. Bones appear grossly intact. Midthoracic dextroscoliosis. IMPRESSION: No acute process. ACT 112: Negative or not required by law. The above report was generated using voice recognition software. It may contain grammatical, syntax or spelling errors. Electronically signed by: Pio Avina M.D. 04/26/2023 3:15 PM Discharge Plan Visit Data Chief Complaint: Cardiac Assessment ED Provider: Luiz Saldana Discharge Problem: Precordial chest pain, History of coronary artery disease, Leukocytosis, Hypokalemia Patient Disposition: Admitted As Inpatient Condition: Fair Discharge Instructions Interventions: ED Discharge Assessment Last Done: 04/26/23 19:32
[2023-04-26 15:02] LABS: Albumin Globulin Ratio 1.5 (0.9-2); Albumin Level 4.1 gm/dl (3.4-5.0); BUN Creatinine Ratio 18.1 (10-20); Bilirubin,Total 0.8 mg/dl (0.2-1.0); Calcium 9.1 mg/dl (8.6-10.3); Est GFR (African American) 79.5 ml/min; Est GFR (Non-African American) 68.6 ml/min; Globulin 2.7 gm/dl (2.5-4.0); Magnesium 1.8 mg/dl (1.7-2.4); Potassium 3.3 mmol/L (3.5-5.1); Total Protein 6.8 gm/dl (6.0-8.3)
[2023-04-26 15:09] LABS: Troponin I High Sensitivity 3.8 pg/ml (0-20)
[2023-04-26 15:14] LABS: Basophils # (auto) 0.04 K/uL (0-0.2); Basophils % (auto) 0.3 %; Eosinophils # (auto) 0.19 K/uL (0-0.50); Eosinophils % (auto) 1.5 %; Hematocrit (blood only) 34.1 % (42.0-52.0); Hemoglobin 11.5 g/dl (14.0-18.0); Immature Granulocytes # (auto) 0.05 K/uL (0.01-0.20); Immature Granulocytes % (auto) 0.4 %; Lymphocytes # (auto) 1.74 K/uL (1.2-3.4); Lymphocytes % (auto) 13.4 %; Mean Corpuscular Hemoglobin 30.6 pg (25.0-34.0); Mean Corpuscular Hgb Conc 33.7 g/dL (32.0-36.0); Mean Corpuscular Volume 90.7 fL (80.0-100.0); Mean Platelet Volume 12.4 fL (9.4-12.4); Monocytes # (auto) 0.74 K/uL (0.11-0.59); Monocytes % (auto) 5.7 %; Neutrophils % (auto) 78.7 %; Platelet Count 222 K/uL (130-400); RDW Coefficient of Variation 13.5 % (11.5-14.5); RDW Standard Deviation 44.8 fL (36.4-46.3); Red Blood Count 3.76 M/uL (4.70-6.10); White Blood Count 12.96 K/ul (4.8-10.8)
--- NOTE | 2023-04-26 15:16 | XRay Report ---
XR chest 1V portable HISTORY: 78 years-old Male Chest pain, nonspecific COMPARISON: 03/16/2018 TECHNIQUE: AP view the chest FINDINGS: Cardiomediastinal and hilar silhouettes are within normal limits. No pneumothorax, pleural effusion, airspace consolidation or pulmonary edema. Bones appear grossly intact. Midthoracic dextroscoliosis. IMPRESSION: No acute process. ACT 112: Negative or not required by law. The above report was generated using voice recognition software. It may contain grammatical, syntax o r spelling errors. Electronically signed by: Pio Avina M.D. 04/26/2023 3:15 PM
[2023-04-26 15:27] LABS: Partial Thromboplastin Ratio 0.9; Partial Thromboplastin Time 25.2 Seconds (21.0-31.0); Prothrombin Time 10.7 Seconds (9.0-12.0)
[2023-04-26] MEDS ORDERED: POTASSIUM CHLORIDE / WTR 10 MEQ/100 ML PLCT IV ONE (15:38)
--- NOTE | 2023-04-26 16:42 | History & Physical Report ---
Date of Service April 26, 2023 Assessment & Plan (1) Chest pain, unspecified: Plan: Chest pain, history of CAD/PCI Abrupt onset of chest pain with diaphoresis, shortness of breath while sitting in chair, 4/10 in intensity which passed after about 2 hours chest pain fever at time of evaluation in ER. No preceding episodes of angina/chest pain/shortness of breath preceding weeks, no chest pain induced by exertion or activity in the previous few weeks. 1999 DC, failed PCI, subsequent stents in 2015 and 2017 - Similar in quality to prior DC. Hx 3x PCI Continue aspirin/Plavix/atorvastatin Improved following aspirin, fluids - Symptoms came on at rest. Lasted about 2 hours. Potassium 3.3, optimize to 4.0. Repletion ordered Mag 1.8, optimize to 2.0, repletion ordered High-sensitivity troponin 3.8, repeat troponin pending EKG: Sinus rhythm with PVCs. No territorial ST segment changes. No T wave inversions. QTc 479. Rate 77 - CXR: No acute process - Echo 03/2018: Grade 1 diastolic dysfunction, EF 55 to 60% Cardiology consulted. While no acute territorial EKG changes, with initially normal troponin with highly concerning sx at rest and high risk history will place on heparin overnight pending trend/echo completion. COPD Intermittent biweekly ongoing tobacco use, cessation recommended Patient to use his inhalers this morning, he is now wheezing on time of admitting No acute exacerbation at time of admission Does have a leukocytosis of 12 without left shift, trended. GERD EGD 12/2022: Mucosal esophageal changes suspicious for Lutz's Biopsy from above EGD with inflamed columnar/gastric type mucosa, no intestinal metaplasia/dysplasia, no squamous mucosa present. Inconsistent with Lutz's Currently not on a PPI, denies GERD symptoms BPH Follows with urology No acute change Hypothyroidism Continue Synthroid Type II DM Hold Ozempic/metformin Goal BSG 111173 SSI while inpatient. basal deferred 2/2 ozempic - BSG ac/hs DVT prophylaxis: heparin gtt Diet: Heart healthy, DM 2 Disposition: Medical telemetry for chest pain CODE STATUS: Full code (2) Bilateral edema of lower extremity: (3) Type 2 diabetes mellitus with diabetic chronic kidney disease: (4) COPD (chronic obstructive pulmonary disease): (5) Tobacco abuse: (6) Presence of drug-eluting stent in right coronary artery: (7) Obesity: (8) Coronary artery disease: (9) CKD (chronic kidney disease), stage III: History of Present Illness Primary Care Provider: Laura Alas PA-C Dane is a 78-year-old male with a past medical history of type II DM, hypothyroidism, COPD, NSTEMI, BPH, GERD, CKD, hyperlipidemia, hypertension who presents with nausea, dizziness, upper chest pain rating into the neck, and sweating at approximately 1245 which was not improved following nitroglycerin. He was seen in the ER for chest pain evaluation, and did receive full dose aspirin, Zofran, 500 cc saline while in route by EMS. "Jesús" reports he felt OK when he woke up this morning. Was laying in a recliner chair when suddenly he got dry heaves, lightheadedness, and dizziness while sitting. Had a tightness in his throat and mid chest and broke out in a cold sweat all over, had to take off his T-shift which was damp. Chest pain initially was an ache and tightness maybe ~4/10 in intentensity. Pain has completely resolved at time of assessment. Had some shortness of breath. [place] similar to his past heart attack. No similar symptoms, angina, or SoB in the last few weeks/months DC many years ago in [facility] no stents. Then again [facility] a few years ago reports 3 stends a few years ago, no history of CABG Smoked a few cigarettes last night, tries not to smoke often anymore. Reports has few cigarettes every other week. Rare etoh use. has COPD. Uses inhalers. NO recent wheezing. Uses Wixela twice a iraj, albuterol as needed. Tried this AM, did not help. Leg swelling x1 week. Recently with orthopnea, does not lay flat due to sob. Medical History: Reviewed Medications: Reviewed Surgical History: Reviewed Family history: Reviewed Allergies: Reviewed Code Status: FUll Allergies Allergy/AdvReac Type Severity Reaction Status Date / Time No Known Drug Allergies Allergy Verified 12/08/22 12:37 Home Medications Medication Instructions Recorded Confirmed Type albuterol sulfate 90 mcg/actuation 2 puffs inhalation Q6H PRN 12/29/19 04/26/23 History breath activated powder inhaler shortness of breath aspirin 81 mg tablet,delayed 81 mg PO QAM 12/29/19 04/26/23 History release (Adult Low Dose Aspirin) atorvastatin 80 mg tablet 80 mg PO QAM 12/29/19 04/26/23 History cholecalciferol (vitamin D3) 25 2,000 units PO QAM 12/29/19 04/26/23 History mcg (1,000 unit) capsule clopidogrel 75 mg tablet (Plavix) 75 mg PO QAM 12/29/19 04/26/23 History fluticasone propionate 50 2 sprays intranasal DAILY PRN 12/29/19 04/26/23 History mcg/actuation nasal Nasal Congestion spray,suspension ibuprofen 400 mg tablet 400 mg PO Q8H PRN pain 12/29/19 04/26/23 History levothyroxine 25 mcg tablet 12.5 mcg PO QAM 12/29/19 04/26/23 History potassium chloride 20 mEq 20 meq PO QAM 12/29/19 04/26/23 History tablet,extended release(part/cryst) furosemide 40 mg tablet See Rx Instructions PO BID #120 12/30/19 04/26/23 Rx tabs folic acid 1 mg tablet 1 mg PO QAM 05/07/21 04/26/23 History ipratropium bromide 21 mcg (0.03 2 spray intranasal DAILY #30 mL 01/09/22 04/26/23 Rx %) nasal spray famotidine 20 mg tablet 20 mg PO QAM GERD 12/01/22 04/26/23 History fluticasone 500 mcg-salmeterol 50 1 inh inhalation BID 12/01/22 04/26/23 History mcg/dose blistr powdr for inhalation (Wixela Inhub) metformin 1,000 mg tablet 1,000 mg PO QAM 12/01/22 04/26/23 History metoprolol succinate 50 mg 50 mg PO QAM 12/01/22 04/26/23 History tablet,extended release 24 hr semaglutide 0.25 mg or 0.5 mg (2 0.5 mg subcut WK 12/01/22 04/26/23 History mg/3 mL) subcutaneous pen injector (Ozempic) Past Med/Surg History Medical History (Updated 12/30/22 @ 13:38 by Orlando Cisse MD) Abdominal bloating Anemia pt denies BPH (benign prostatic hyperplasia) Cervicalgia CKD (chronic kidney disease), stage III COPD (chronic obstructive pulmonary disease) mild - sob with exertion Coronary artery disease 1998 following DC - [facility] - failed PCI 2015 - stent 2018 - 1 stent DM type 2 (diabetes mellitus, type 2) NIDDM GERD (gastroesophageal reflux disease) Hearing deficit Rt ear History of myocardial infarction 1998, 2015 Hyperlipidemia Hypertension Hypothyroidism Osteoarthritis Scoliosis Solitary pulmonary nodule TMJ click never locked Venous insufficiency Surgical History (Updated 12/01/22 @ 10:58 by Hansa Nye RN) History of appendectomy History of cardiac catheterization x 3 1998 following DC - [facility] - failed PCI 07/29/2016 [facility] - 1 stent 03/16/2018 [facility] - 1 stent History of colonoscopy History of left inguinal hernia repair History of shoulder surgery Left shoulder repair with hardware. History of tonsillectomy History of tooth extraction S/P coronary artery stent placement x 3 (TERESSA Barrera (1989) /[facility]) Family History Father Heart disease Diabetes Sister Diabetes Other Cancer No family history of adverse response to anesthesia No family history of bleeding disorder Stroke Social History Smoking Status: Current some day smoker Tobacco Type: Cigarettes Cigarettes Per Day: x2 a month; Second Hand Exposure: No; Do You Dip or Chew Tobacco: No; Hx Alcohol Use: Yes Alcohol type: beer Hx Substance Use: No Preferred Language: Danish Communication Ability: Effective Outpatient Therapist Required: No Beliefs That Will Affect Care: None Current Living Situation: Spouse Feels Safe at Home: Yes Assistive Devices: Glasses Review of Systems Review of Systems: All systems reviewed & are unremarkable except as noted in HPI & below Physical Exam Physical Exam: General: A&Ox3. NAD. Cooperative. HEENT: Atraumatic, normocephalic. Vision/hearing intact Pulm: Bibasilar crackles, no overt rales. No wheezing. Symmetrical chest rise. No increased work of breathing. No respiratory distress. Cardiac: RRR with intermittent PVCs, soft SM. Radial pulses intact and symmetrical. Abdominal: Nontender, nondistended, soft. BS present. Results & Data Results & Data Vital Signs (Past 12 Hours) Vital Signs Temp Pulse Resp BP Pulse Ox O2 Del Method 04/26/23 14:50 73 15 133/69 94 Room Air 04/26/23 14:40 75 18 95 04/26/23 14:34 75 9 L 94 04/26/23 14:40 96 Room Air 04/26/23 14:39 Room Air 04/26/23 14:35 74 04/26/23 14:23 35.6 C L 81 18 104/70 95 Room Air PG Care Time/CCT Total # of Minutes Spent Total Time Spent with Patient: Total time spent is greater than 50% in coordination of care (as documented) at patient's floor/unit and/or counseling patient: Coding Level of Care Code 23368 INT INP/OBS CARE 3/75MIN Diagnoses Chest pain, unspecified R07.9 Bilateral edema of lower extremity R60.0 Type 2 diabetes mellitus with diabetic chronic kidney disease E11.22 COPD (chronic obstructive pulmonary disease) J44.9 Tobacco abuse Z72.0 Presence of drug-eluting stent in right coronary artery Z95.5 Obesity E66.9 Coronary artery disease I25.10 CKD (chronic kidney disease), stage III N18.3
[2023-04-26] MEDS ORDERED: DEXTROSE 50% 50 ML SYRINGE IV PRN (16:52)
[2023-04-26] MEDS ORDERED: GLUCOSE 10 TAB/TUBE PO PRN (16:52)
[2023-04-26] MEDS ORDERED: GLUCOSE 40% GEL 15 GM TUBE PO PRN (16:52)
[2023-04-26] MEDS ORDERED: CARBOHYDRATES FOR HYPOGLYCEMIA PO PRN (16:52)
[2023-04-26] MEDS ORDERED: MAGNESIUM OXIDE 400 MG TAB PO ONE (16:52)
[2023-04-26] MEDS ORDERED: GLUCAGON FOR INJ 1 MG VIAL SQ PRN (16:52)
[2023-04-26] MEDS ORDERED: Heparin IV Adult Wt-Based Low-Dose WITH Bolus Protocol IV SCH (17:41)
[2023-04-26] MEDS ORDERED: HEPARIN SOD (PORCINE) 1000 UNIT/ML IV ONE (17:55)
[2023-04-26] MEDS ORDERED: HEPARIN SODIUM/DEXTROSE 25,000 UNITS/500 ML BAG IV SCH (18:00)
[2023-04-26] MEDS ORDERED: NITROGLYCERIN SL 0.4 MG/TAB TAB SL PRN (19:31)
[2023-04-26] MEDS ORDERED: ACETAMINOPHEN 325 MG TAB PO PRN (19:31)
[2023-04-26] MEDS ORDERED: ALBUTEROL HFA 8 GM INHALER INH PRN (19:42)
[2023-04-26] MEDS: LANTUS PER UNIT CHARGE SQ SCH (21:04)
[2023-04-26] MEDS: INSULIN ASPART PER UNIT CHARGE SC SCH (21:05)
[2023-04-26] MEDS: POTASSIUM CHLORIDE CRTAB 20 MEQ TABCR PO SCH (21:05)
[2023-04-27 01:39] LABS: Partial Thromboplastin Ratio 1.5
[2023-04-27 01:42] LABS: Partial Thromboplastin Time 43.1 Seconds (21.0-31.0)
[2023-04-27] MEDS ORDERED: LEVOTHYROXINE SODIUM 25 MCG TABLET PO SCH (06:30)
[2023-04-27 07:09] LABS: Basophils # (auto) 0.03 K/uL (0-0.2); Basophils % (auto) 0.3 %; Eosinophils # (auto) 0.19 K/uL (0-0.50); Eosinophils % (auto) 2.1 %; Hematocrit (blood only) 31.8 % (42.0-52.0); Hemoglobin 10.7 g/dl (14.0-18.0); Immature Granulocytes # (auto) 0.03 K/uL (0.01-0.20); Immature Granulocytes % (auto) 0.3 %; Lymphocytes # (auto) 2.83 K/uL (1.2-3.4); Lymphocytes % (auto) 31.3 %; Mean Corpuscular Hemoglobin 30.7 pg (25.0-34.0); Mean Corpuscular Hgb Conc 33.6 g/dL (32.0-36.0); Mean Corpuscular Volume 91.1 fL (80.0-100.0); Mean Platelet Volume 12.3 fL (9.4-12.4); Monocytes # (auto) 0.57 K/uL (0.11-0.59); Monocytes % (auto) 6.3 %; Neutrophils # (auto) 5.39 K/uL (1.40-6.50); Neutrophils % (auto) 59.7 %; Platelet Count 193 K/uL (130-400); RDW Coefficient of Variation 13.8 % (11.5-14.5); RDW Standard Deviation 46.1 fL (36.4-46.3); Red Blood Count 3.49 M/uL (4.70-6.10); White Blood Count 9.04 K/ul (4.8-10.8)
[2023-04-27 07:26] LABS: BUN Creatinine Ratio 16.5 (10-20); Calcium 9.2 mg/dl (8.6-10.3); Est GFR (African American) 81.4 ml/min; Est GFR (Non-African American) 70.2 ml/min; Magnesium 2.2 mg/dl (1.7-2.4); Potassium 4.1 mmol/L (3.5-5.1)
--- NOTE | 2023-04-27 08:32 | Hospitalist Progress Note ---
Date of Service April 27, 2023 Assessment & Plan (1) Chest pain, unspecified: Plan: Chest pain, history of CAD/PCI in 2016 and 2018 Abrupt onset of chest pain with diaphoresis, shortness of breath while sitting in chair, 4/10 in intensity lasted about 2 hours chest pain aspirin/Plavix/atorvastatin High-sensitivity troponin not elevated x5 EKG: no acute changes - CXR: No acute process Cardiology consulted. admitting team did place on heparin gtt Type II DM, chronic and stable; CKD 3 Hold Ozempic/metformin Goal BSG 006996 SSI while inpatient. basal deferred 2/2 ozempic - BSG ac/hs COPD, chronic and stable, Intermittent biweekly ongoing tobacco use, cessation recommended GERD EGD 12/2022:biopsy negative for Lutz's Hypothyroidism Continue Synthroid CODE STATUS: Full code (2) Type 2 diabetes mellitus with diabetic chronic kidney disease: (3) COPD (chronic obstructive pulmonary disease): (4) CKD (chronic kidney disease), stage III: Admission and Anticipated Discharge Date Admission Date: April 26, 2023 Results & Data Results & Data Vital Signs (Past 12 Hours) Vital Signs Temp Pulse Pulse Resp BP Pulse Ox Pulse Ox 04/27/23 08:00 62 18 126/64 98 04/27/23 06:12 77 16 109/57 L 95 04/27/23 00:20 77 04/27/23 04:23 82 18 115/70 95 04/27/23 01:30 98.4 F 78 18 123/87 95 04/26/23 23:21 70 16 113/64 95 04/26/23 23:19 95 04/26/23 23:19 71 16 113/64 95 O2 Del Method O2 Del Method 04/27/23 08:00 Room Air 04/27/23 06:12 Room Air 04/27/23 00:20 04/27/23 04:23 Room Air 04/27/23 01:30 Room Air 04/26/23 23:21 Room Air 04/26/23 23:19 Room Air 04/26/23 23:19 Room Air PG Care Time/CCT Total # of Minutes Spent Total Time Spent with Patient: Total time spent is greater than 50% in coordination of care (as documented) at patient's floor/unit and/or counseling patient: Coding Diagnoses Chest pain, unspecified R07.9 Type 2 diabetes mellitus with diabetic chronic kidney disease E11.22 COPD (chronic obstructive pulmonary disease) J44.9 CKD (chronic kidney disease), stage III N18.3
[2023-04-27] MEDS: POTASSIUM CHLORIDE CRTAB 20 MEQ TABCR PO SCH ×2 (08:58→14:24)
[2023-04-27] MEDS ORDERED: FUROSEMIDE 40 MG TAB PO SCH ×2 (09:00→14:00)
[2023-04-27] MEDS ORDERED: ATORVASTATIN 40 MG TAB PO SCH (09:00)
[2023-04-27] MEDS ORDERED: POTASSIUM CHLORIDE CRTAB 20 MEQ TABCR PO SCH (09:00)
[2023-04-27] MEDS ORDERED: METOPROLOL SUCC 50MG EXT REL TAB PO SCH (09:00)
[2023-04-27] MEDS ORDERED: CHOLECALCIFEROL 1,000 UNITS 25 MCG TAB PO SCH (09:00)
[2023-04-27] MEDS ORDERED: ASPIRIN 81 MG ECTAB PO SCH (09:00)
[2023-04-27] MEDS ORDERED: FLUTICASONE/VILANTEROL 100/25MCG 14 PUFFS/INHALER INH SCH (09:00)
[2023-04-27] MEDS ORDERED: CLOPIDOGREL BISULFATE 75 MG TAB PO SCH (09:00)
[2023-04-27] MEDS ORDERED: FAMOTIDINE 20 MG TAB PO SCH (09:00)
[2023-04-27] MEDS ORDERED: FOLIC ACID 1 MG TAB PO SCH (09:00)
[2023-04-27] MEDS: INSULIN ASPART PER UNIT CHARGE SC SCH ×2 (09:13→12:16)
[2023-04-27] MEDS: LANTUS PER UNIT CHARGE SQ SCH (09:14)
--- NOTE | 2023-04-27 11:47 | XCELERA ---
[id number]
--- NOTE | 2023-04-27 12:30 | Electrocardiogram Report ---
Test Reason : Blood Pressure : / mmHG Vent. Rate : 077 BPM Atrial Rate : 077 BPM P-R Int : 200 ms QRS Dur : 088 ms QT Int : 424 ms P-R-T Axes : 069 031 072 degrees QTc Int : 479 ms Sinus rhythm with Premature supraventricular complexes and with occasional Premature ventricular comp lexes Otherwise normal ECG When compared with ECG of 17-MAR-2018 07:02, Premature ventricular complexes are now Present Premature supraventricular complexes are now Present Confirmed by Heri Williamson ([id number]) on 04/27/2023 12:30:14 PM Referred By: REFERRED SELF Confirmed By:Heri Williamson
--- NOTE | 2023-04-27 13:10 | Cardiology Consultation ---
Date of Consultation April 27, 2023 Assessment & Plan (1) Precordial chest pain: (2) History of coronary artery disease: (3) Palpitation: Plan 1. Chest discomfort: He described an atypical type chest discomfort on presentation. Although he has coronary artery disease his symptoms are not exertional, on stress testing he had no exertional symptoms and by my reading his stress test is good. I would not pursue this further from the cardiovascular perspective. The symptoms were associated with GI symptoms I suspect that is the cause. 2. Coronary disease: He does have coronary disease, he should continue aspirin and atorvastatin. 3. Palpitations: He does describe palpitations as well as a irregular pulse, on monitoring he appears to have very frequent unifocal premature ventricular beats which on twelve-lead are suggestive of a right ventricular outflow tract origin. During exercise he did have some increase in NSVT including 3 and 4 beat runs. These had the same morphology. This may respond to increase beta-blockade although antiarrhythmic therapy or ablation is a consideration. This would probably be best evaluated with outpatient monitoring and treatment. He has expressed an interest in following up with the [facility] upon discharge. History of Present Illness Reason for Consultation: Chest discomfort, palpitations Attending Physician: Ayan Garcia MD History of Present Illness This is a 78-year-old male with a history of coronary disease and cardiomyopathy as well as hypertension, dyslipidemia and diabetes mellitus. He had a cardiac catheterization in 1998, I believe related to a myocardial infarction and thrombolytic therapy, this was done on transfer to [facility]. He then had a catheterization here July 29, 2016 with the setting of an NSTEMI where he had a subtotal mid circumflex stenosis for which he had stent placement, as well as other nonobstructive disease. His ejection fraction was somewhat reduced at the time, however on January 20, 2020 he had normal left ventricular size and systolic function. He was evaluated in October 2021 for complaints of lightheadedness and palpitations, with plans to follow-up after that however it appears that he was not seen subsequently. He tells me that he sees a printed circuit board layout designer at the [facility]. He presents April 26, 2023 with symptoms of dizziness and diaphoresis as well as some chest discomfort radiation to his back. He did have vomiting. He has had no further chest discomfort since presenting here. At home it does not sound like he exerts himself on a regular basis, but cares for his and is noted no chest discomfort consistently with activities. Studies here included an electrocardiogram done on presentation which shows sinus rhythm with premature ventricular beats (suggestive of a right ventricular outflow tract origin) but no ischemic changes. An echocardiogram was done on April 27, 2023 and shows normal left ventricular systolic function with no wall motion abnormalities. Cardiac enzymes (high-sensitivity troponin) has been negative x5 with another measurement pending. Allergies Allergy/AdvReac Type Severity Reaction Status Date / Time No Known Drug Allergies Allergy Verified 12/08/22 12:37 Home Medications Medication Instructions Recorded Confirmed Type albuterol sulfate 90 mcg/actuation 2 puffs inhalation Q6H PRN 12/29/19 04/26/23 History breath activated powder inhaler shortness of breath aspirin 81 mg tablet,delayed 81 mg PO QAM 12/29/19 04/26/23 History release (Adult Low Dose Aspirin) atorvastatin 80 mg tablet 80 mg PO QAM 12/29/19 04/26/23 History cholecalciferol (vitamin D3) 25 2,000 units PO QAM 12/29/19 04/26/23 History mcg (1,000 unit) capsule clopidogrel 75 mg tablet (Plavix) 75 mg PO QAM 12/29/19 04/26/23 History fluticasone propionate 50 2 sprays intranasal DAILY PRN 12/29/19 04/26/23 History mcg/actuation nasal Nasal Congestion spray,suspension ibuprofen 400 mg tablet 400 mg PO Q8H PRN pain 12/29/19 04/26/23 History levothyroxine 25 mcg tablet 12.5 mcg PO QAM 12/29/19 04/26/23 History potassium chloride 20 mEq 20 meq PO QAM 12/29/19 04/26/23 History tablet,extended release(part/cryst) furosemide 40 mg tablet See Rx Instructions PO BID #120 12/30/19 04/26/23 Rx tabs folic acid 1 mg tablet 1 mg PO QAM 05/07/21 04/26/23 History ipratropium bromide 21 mcg (0.03 2 spray intranasal DAILY #30 mL 01/09/22 04/26/23 Rx %) nasal spray famotidine 20 mg tablet 20 mg PO QAM GERD 12/01/22 04/26/23 History fluticasone 500 mcg-salmeterol 50 1 inh inhalation BID 12/01/22 04/26/23 History mcg/dose blistr powdr for inhalation (Wixela Inhub) metformin 1,000 mg tablet 1,000 mg PO QAM 12/01/22 04/26/23 History metoprolol succinate 50 mg 50 mg PO QAM 12/01/22 04/26/23 History tablet,extended release 24 hr semaglutide 0.25 mg or 0.5 mg (2 0.5 mg subcut WK 12/01/22 04/26/23 History mg/3 mL) subcutaneous pen injector (Ozempic) Patient History Medical History Abdominal bloating Anemia pt denies BPH (benign prostatic hyperplasia) Cervicalgia CKD (chronic kidney disease), stage III COPD (chronic obstructive pulmonary disease) mild - sob with exertion Coronary artery disease 1998 following [place] - [facility] - failed PCI 2015 - stent 2017 - 1 stent DM type 2 (diabetes mellitus, type 2) NIDDM GERD (gastroesophageal reflux disease) Hearing deficit Rt ear History of myocardial infarction 1998, 2016 Hyperlipidemia Hypertension Hypothyroidism Osteoarthritis Scoliosis Solitary pulmonary nodule TMJ click never locked Venous insufficiency Surgical History History of appendectomy History of cardiac catheterization x 3 1998 following [place] - [facility] - failed PCI 07/29/2016 [facility] - 1 stent 03/16/2018 [facility] - 1 stent History of colonoscopy History of left inguinal hernia repair History of shoulder surgery Left shoulder repair with hardware. History of tonsillectomy History of tooth extraction S/P coronary artery stent placement x 3 (TERESSA Barrera (1989) /[facility]) Family History Father Heart disease Diabetes Sister Diabetes Other Cancer No family history of adverse response to anesthesia No family history of bleeding disorder Stroke Social History Smoking Status: Never smoker Tobacco Type: Cigarettes Cigarettes Per Day: x2 a month; Second Hand Exposure: No; Do You Dip or Chew Tobacco: No; Hx Alcohol Use: Yes Alcohol type: beer Hx Substance Use: No Preferred Language: Indonesian Communication Ability: Effective Athlete Marketing Agent Required: No Beliefs That Will Affect Care: None Current Living Situation: Spouse and Family Other Information That Helps Us Care for You: No Feels Safe at Home: Yes Safety Concerns: Feels Safe At This Time Assistive Devices: None Review of Systems Review of Systems: All systems reviewed & are unremarkable except as noted in HPI & below Physical Exam Physical Exam: Constitutional: Alert, cooperative and in no distress. HEENT: Unremarkable Neck: No jugular venous distention, carotid pulses are normal and equal bilaterally without bruits. Pulmonary: Clear to auscultation bilaterally. Cardiac: Regular rhythm with premature beats, no murmur, gallop or rub. Abdomen: Soft, nontender with normal bowel sounds. Extremities: No edema. Distal pulses intact. Neurologic: No focal findings. Gait is steady. Skin: No rash, ecchymoses or petechiae. Results & Data Vital Signs (Past 12 Hours) Vital Signs Temp Pulse Pulse Resp BP BP Pulse Ox 04/27/23 11:16 36.4 C L 66 22 128/61 93 04/27/23 08:45 74 04/27/23 08:43 36.4 C L 66 18 148/73 H 98 04/27/23 08:00 62 18 126/64 98 04/27/23 06:12 77 16 109/57 L 95 04/27/23 04:23 82 18 115/70 95 04/27/23 01:30 36.9 C 78 18 123/87 95 O2 Del Method 04/27/23 11:16 Room Air 04/27/23 08:45 04/27/23 08:43 Room Air 04/27/23 08:00 Room Air 04/27/23 06:12 Room Air 04/27/23 04:23 Room Air 04/27/23 01:30 Room Air Laboratory Results Cardiac Enzymes 04/26/23 04/26/23 04/26/23 Range/Units 14:40 17:11 17:11 AST 14 (13-39) U/L Troponin I High Sens 3.8 4.1 (0-20) pg/ml B-Natriuretic Peptide 27 (0-100) pg/ml 04/26/23 04/27/23 04/27/23 Range/Units 19:02 00:33 06:50 AST (13-39) U/L Troponin I High Sens 4.4 5.2 4.6 (0-20) pg/ml B-Natriuretic Peptide (0-100) pg/ml Coagulation 04/26/23 04/26/23 04/27/23 Range/Units 14:41 17:11 00:33 PT 10.7 (9.0-12.0) Seconds APTT 25.2 43.1 H* (21.0-31.0) Seconds B-Natriuretic Peptide 27 (0-100) pg/ml CBC 04/26/23 04/27/23 Range/Units 14:40 06:50 WBC 12.96 H 9.04 (4.8-10.8) K/ul RBC 3.76 L 3.49 L (4.70-6.10) M/uL Hgb 11.5 L 10.7 L (14.0-18.0) g/dl Hct 34.1 L 31.8 L (42.0-52.0) % Plt Count 222 193 (130-400) K/uL Neut # (Auto) 10.20 H 5.39 (1.40-6.50) K/uL Lymph # (Auto) 1.74 2.83 (1.2-3.4) K/uL [place] # (Auto) 0.74 H 0.57 (0.11-0.59) K/uL Eos # (Auto) 0.19 0.19 (0-0.50) K/uL Baso # (Auto) 0.04 0.03 (0-0.2) K/uL Comprehensive Metabolic Panel 04/26/23 04/27/23 Range/Units 14:40 06:50 Sodium 136 136 (136-145) mmol/L Potassium 3.3 L 4.1 D (3.5-5.1) mmol/L Chloride 104 105 (98-107) mmol/L Carbon Dioxide 22 26 (21-32) mmol/L BUN 19 17 (6-23) mg/dl Creatinine 1.05 1.03 (0.6-1.4) mg/dl Glucose 170 H 139 H (70-99(Fasting)) mg/dl Calcium 9.1 9.2 (8.6-10.3) mg/dl AST 14 (13-39) U/L ALT 11 (7-52) U/L Alkaline Phosphatase 92 (34-104) U/L Total Protein 6.8 (6.0-8.3) gm/dl Albumin 4.1 (3.4-5.0) gm/dl Intake and Output 04/26/23 04/27/23 04/27/23 22:59 06:59 14:59 Intake Total 100 / 100 238.133 / 238.133 Balance 100 / 100 238.133 / 238.133 Intake: IV 100 / 100 238.133 / 238.133 Heparin Sodium/Dextrose 25,000 238.133 / 238.133 units In 500 ml @ 800 UNITS/HR 16 mls/hr IV .Q24H SABINA Rx#: [id number] Potassium Chloride / Wtr 10 meq 100 / 100 In 100 ml @ 100 mls/hr IV ONE ONE Rx#:[id number] Oral 0 / 0 Other: Weight 71.5 kg 73.7 kg Weight Measurement Method Built in [place] Built in [facility] Patient Weight 04/28/23 06:59 Weight 73.7 kg Diagnostic Findings Telemetry: Sinus rhythm with very frequent unifocal premature ventricular beats, runs of nonsustained ventricular tachycardia up to 4 beats with the same morphology. No clear diurnal change in frequency of PVCs. Stress echo: He exercised reasonably well although did not quite reach target heart rate, by my review of the stress images I do not think he has significant ischemia but will be formally read later. Frequent premature ventricular beats and brief runs of NSVT during exercise. Likely an RVOT origin, not ischemic. PG Care Time/CCT Total # of Minutes Spent Total Time Spent with Patient: Total time spent is greater than 50% in coordination of care (as documented) at patient's floor/unit and/or counseling patient: Coding Level of Care Code 63264 INT INP/OBS CARE 3/75MIN Diagnoses Precordial chest pain R07.2 History of coronary artery disease Z86.79 Palpitation R00.2
--- NOTE | 2023-04-27 14:50 | Discharge Summary ---
Date of Service April 27, 2023 Admission HPI Per Admitting Provider Dane is a 78-year-old male with a past medical history of type II DM, hypothyroidism, COPD, NSTEMI, BPH, GERD, CKD, hyperlipidemia, hypertension who presents with nausea, dizziness, upper chest pain rating into the neck, and sweating at approximately 1245 which was not improved following nitroglycerin. He was seen in the ER for chest pain evaluation, and did receive full dose aspirin, Zofran, 500 cc saline while in route by EMS. "Jesús" reports he felt OK when he woke up this morning. Was laying in a recliner chair when suddenly he got dry heaves, lightheadedness, and dizziness while sitting. Had a tightness in his throat and mid chest and broke out in a cold sweat all over, had to take off his T-shift which was damp. Chest pain initially was an ache and tightness maybe ~4/10 in intentensity. Pain has completely resolved at time of assessment. Had some shortness of breath. [place] similar to his past heart attack. No similar symptoms, angina, or SoB in the last few weeks/months [place] many years ago in [facility] medically no stents. Then again CP a few years ago reports 3 stends a few years ago, no history of CABG Smoked a few cigarettes last night, tries not to smoke often anymore. Reports has few cigarettes every other week. Rare etoh use. has COPD. Uses inhalers. NO recent wheezing. Uses Wixela twice a iraj, albuterol as needed. Tried this AM, did not help. Leg swelling x1 week. Recently with orthopnea, does not lay flat due to sob. Medical History: Reviewed Medications: Reviewed Surgical History: Reviewed Family history: Reviewed Allergies: Reviewed Code Status: FUll Principal Diagnosis atypical chest pain with negative treadmill stress test Discharge Exam regular appropriate does have a systolic murmur otherwise benign exam Discharge Data Allergies Allergy/AdvReac Type Severity Reaction Status Date / Time No Known Drug Allergies Allergy Verified 12/08/22 12:37 Consultations 04/26/23 16:00 ED Decision to Admit Stat 04/26/23 19:31 Consult Cardiology Routine Hospital Course (1) Chest pain, unspecified: Chest pain, history of CAD/PCI in 2016 and 2018 Abrupt onset of chest pain with diaphoresis, shortness of breath while sitting in chair, 4/10 in intensity lasted about 2 hours chest pain after negative troponins patient underwent a treadmill stress test and although had some PVCs had negative changes consistent with ischemia. Electrophysiology did recommend follow-up with the patient states [facility] Recommendation is to escalate his beta-carlie which we will do at time of discharge aspirin/Plavix/atorvastatin High-sensitivity troponin not elevated x5 EKG: no acute changes - CXR: No acute process Cardiology consulted. admitting team did place on heparin gtt Type II DM, chronic and stable; CKD 3 resume Ozempic/metformin COPD, chronic and stable, Intermittent biweekly ongoing tobacco use, cessation recommended GERD EGD 12/2022:biopsy negative for Lutz's Hypothyroidism Continue Synthroid CODE STATUS: Full code (2) Type 2 diabetes mellitus with diabetic chronic kidney disease: (3) COPD (chronic obstructive pulmonary disease): (4) CKD (chronic kidney disease), stage III: Total Time Total Time Spent Total Time Spent (In Minutes): it required greater than 30 minutes to prepare this patient for discharge Discharge Plan Discharge Items Patient Disposition: Home - Self-Care Reason For Visit: CHEST PAIN, HIGH RISK Discharge Diagnosis: chest pain negative stress test Condition on Discharge: Fair Activity: Resume your previous activity Non-emergency contact: Primary Care Provider Call non-emergency contact if: your symptoms worsen Follow-up/Referrals: Laura Alas PA-C [Primary Care Provider] - (PLEASE CALL YOUR PRIMARY CARE PROVIDER TO SCHEDULE A HOSPITAL DISCHARGE FOLLOW-UP APPOINTMENT WITHIN 7-10 DAYS.) Diet: Heart Healthy Addtl Attending Provider Instructions: your blood work and stress test did not show any acute heart attack. There was some concern you had some extra heartbeats from time to time and this may be causing some of your symptoms. It would be beneficial that you follow-up with the heart doctor you may discuss this [facility]. He did see Dr. Acevedo here about any and he be happy to follow-up with you. He has a heart rhythm specialist and you may be referred to him from your [place] physician if they feel that would be their preference for the time being there is no additional recommendations other than to reduce anything that might irritate your heart such as alcohol or caffeine certainly if her symptoms return and they are significant, please return back to us for further evaluation Pending Studies at Discharge: No Stand-Alone Forms: My [facility], Smoking Cessation Medications and DC Order Prescriptions: New metoprolol succinate 25 mg capsule,sprinkle,ER 24hr 25 mg PO DAILY Qty: 30 3RF Rx Instructions: take in addition to 50 mg dose to make 75 Continued folic acid 1 mg tablet 1 mg PO QAM albuterol sulfate 90 mcg/actuation aerosol powdr breath activated 2 puffs INH Q6H PRN (Reason: shortness of breath) atorvastatin 80 mg tablet 80 mg PO QAM cholecalciferol (vitamin D3) 25 mcg (1,000 unit) capsule 2,000 units PO QAM clopidogrel [Plavix] 75 mg tablet 75 mg PO QAM fluticasone propionate 50 mcg/actuation spray,suspension 2 sprays INTNAS DAILY PRN (Reason: Nasal Congestion) levothyroxine 25 mcg tablet 12.5 mcg PO QAM potassium chloride 20 mEq tablet,ER particles/crystals 20 meq PO QAM aspirin [Adult Low Dose Aspirin] 81 mg tablet,delayed release (DR/EC) 81 mg PO QAM ibuprofen 400 mg tablet 400 mg PO Q8H PRN (Reason: pain) furosemide 40 mg tablet See Rx Instructions PO BID Qty: 120 5RF Rx Instructions: 80 mg every morning and 40 mg every afternoon (total of 120 mg for the day) ipratropium bromide 21 mcg (0.03 %) spray,non-aerosol 2 spray intranasal DAILY Qty: 30 2RF Rx Instructions: administer into each nostril metoprolol succinate 50 mg Tablet Extended Release 24 Hr 50 mg PO QAM metformin 1,000 mg Tablet 1,000 mg PO QAM fluticasone propion-salmeterol [Wixela Inhub] 500-50 mcg/dose Blister With Device 1 inh INHALATION BID Ozempic 0.25 mg or 0.5 mg (2 mg/3 mL) Pen Injector 0.5 mg SUBCUT WK Rx Instructions: per pt he usually does Thursday or famotidine 20 mg tablet 20 mg PO QAM Discharge Orders: Discharge Order (Routine); Ordered 04/27/23 Ordered By: Ayan Garcia Admission Data Admit Date/Time: 04/26/23 16:51 Attending Provider: Ayan Garcia Admit Provider: Jonny Peña Primary Care Provider: Laura Alas Other Providers: Jonny Peña ; Heri Williamson ; [facility] Coding Level of Care Code 34905 INP/OBS DISCH >30 MIN Diagnoses Chest pain, unspecified R07.9 Type 2 diabetes mellitus with diabetic chronic kidney disease E11.22 COPD (chronic obstructive pulmonary disease) J44.9 CKD (chronic kidney disease), stage III N18.3
--- NOTE | 2023-04-27 16:11 | XCELERA ---
[id number] \\[id number]
== END 2023-04-27 15:25 | disposition home or self-care (01) ==
LOC: ED 14:23 → EDINP 14:23 → SUATTDRO 16:51 → 2N 19:32